=== PATIENT | female | born 1990 | race Two or more races ===

== ENCOUNTER 2016-12-22 15:15 | Inpatient (IN) | payer MEDICAID ==
[~2016-12-22] VITALS: Ht 153 cm; Wt 61.2 kg
[2016-12-22 16:29] LABS: APPEARANCE,URINE CLEAR; PH,URINE 6.5 (4.5-8.0); PROTEIN,URINE 1+ (NEGATIVE)
[2016-12-22 16:30] LABS: KETONES,URINE 1+ (NEGATIVE); LEUKOCYTE ESTERASE ,URINE 1+ (NEGATIVE); NITRITE,URINE NEGATIVE (NEGATIVE); UROBILINOGEN,URINE 1 MG/DL (0.0-1.0)
[2016-12-22 16:36] LABS: BACTERIA,URINE MODERATE /HPF; SQUAMOUS EPITHELIAL CELL,UR MODERATE /LPF (NONE/OCC)
--- NOTE | 2016-12-22 17:01 | Emergency Room Report ---
History of Present Illness General Chief Complaint: General Complaint Source: Patient Present Illness HPI 26 YO female presents to the ED c/o RUQ and Right flank pain x 1 day. pt. reports intermittent pain and nausea x 4 days that she was able to manage symptomatically at home. pt. reports hx of kidney stones, and states pain is now constant, localized in the right flank and RUQ and rated as 9/10 in severity. Denies hematuria, reports mild dysuria, denies Fevers or chills. Pt. denies , denies ill contacts. Denies CP, Palpitations, LOC, AMS, dizziness, Changes in Vision, Sensation, paresthesias, or a sudden severe headache. Allergies: Coded Allergies: No Known Allergies (Unverified , 12/22/16) Patient History Past Medical History: see triage record Past Surgical History: none Pertinent Family History: none Last Menstrual Period: 11/23/16 Now: No : 3 Para: 3 Immunizations: UTD Reviewed Nursing Documentation: PMH: Agreed, PSxH: Agreed Nursing Documentation-PMH Past Medical History: No History, Except For Review of Systems All Other Systems: negative except mentioned in HPI Physical Exam Vital Signs Date Time Temp Pulse Resp B/P Pulse Ox O2 Delivery O2 Flow Rate FiO2 12/22/16 15:37 97.9 77 14 108/67 100 Room Air Sp02 EP Interpretation: reviewed, normal General Appearance: no apparent distress, alert, GCS 15, non-toxic Head: normocephalic, atraumatic Eyes: bilateral eye PERRL, bilateral eye normal inspection ENT: hearing grossly normal, normal pharynx, no angioedema, normal voice Neck: full range of motion, supple/symm/no masses Respiratory: chest non-tender, lungs clear, normal breath sounds, speaking full sentences Cardiovascular #1: regular rate, rhythm, no edema Cardiovascular #2: 2+ carotid (R), 2+ carotid (L), 2+ radial (R), 2+ radial (L) , 2+ dorsalis pedis (R), 2+ dorsalis pedis (L) Gastrointestinal: normal bowel sounds, soft, no guarding, no rebound, other - Positive Montgomery sign and right CVA Tenderness, Negative MacBurney's sign, Negative Rosvigns Sign, Negative Psoas, No Peritoneal signs. RUQ TTP to deep palpation Rectal: deferred Genitourinary: normal inspection, CVA tenderness (R) Musculoskeletal: back normal, gait/station normal, normal range of motion, non- tender, no calf tenderness Neurologic: alert, oriented x3, responsive, motor strength/tone normal, sensory intact, speech normal Psychiatric: judgement/insight normal, memory normal, mood/affect normal, no suicidal/homicidal ideation Reflexes: 4+ bicep (R), 4+ bicep (L), 4+ tricep (R), 4+ tricep (L), 4+ knee (R) , 4+ knee (L) Skin: normal color, no rash, warm/dry, well hydrated Lymphatic: no adenopathy Medical Decision Making PA Attestation Dr. Santamaria is my supervising Physician whom patient management has been discussed with. Diagnostic Impression: Primary Impression: Choledocholithiasis with acute cholecystitis with obstruction Additional Impression: UTI (urinary tract infection) Qualified Codes: N30.01 - Acute cystitis with hematuria ER Course Pt. presents to the ED c/o RUQ and Right flank pain x 1 day. pt. reports intermittent pain and nausea x 4 days that she was able to manage symptomatically at home. pt. reports hx of kidney stones, and states pain is now constant, localized in the right flank and RUQ and rated as 9/10 in severity. Ddx considered but are not limited to Diverticulitis, acute appy, diarrhea,UC, PUD, GE, pancreatitis, gallstone, kidney stone Vital signs: are WNL, pt. is afebrile H&PE are most consistent with Hypovolemia and diarrhea ORDERS: CBC: no Leukocytosis CMP: WNL lipase: WNL UA: WBC"S and Bacteria indicating UTI - CT abdomen and pelvis no contrast: show no kidney stones or hydro, multiple gall bladder stones and one stone in the neck of the GBD, US imaging recommended by preliminary radiology report. - US Abdomen complete: multiple stones in the gall bladder, a 1.5mm stone in the neck of the gall bladder/CBD, no dilation of the CBD, positive murphys on US per preliminary US report. -- SURGICAL CONSULT: Dr. Manjeet GONZALEZ SCAN- ordered per request by Dr. Burroughs surgical consult. ED INTERVENTIONS: -- 5mg [place] PO for pain - 4mg Zofran PO -- Pt. declined. - Pt is Placed NPO - 1 gram Rocephin IVP DISPOSITION: at this time pt. will be admitted to Dr. Hollingsworth for Choledocholithiasis with acute cholecystitis and obstruction. Dr. Hollingsworth agreed to admit the pt. and to continue pt. care management. Labs Test 12/22/16 15:43 12/22/16 16:35 Urine Color Yellow Urine Appearance Clear Urine pH 6.5 (4.5-8.0) Urine Specific [place] 1.015 (1.005-1.035) Urine Protein 1+ (NEGATIVE) Urine Glucose (UA) Negative (NEGATIVE) Urine Ketones 1+ (NEGATIVE) Urine Occult Blood 1+ (NEGATIVE) Urine Nitrite Negative (NEGATIVE) Urine Bilirubin Negative (NEGATIVE) Urine Urobilinogen 1 MG/DL (0.0-1.0) Urine Leukocyte Esterase 1+ (NEGATIVE) Urine RBC 2-4 /HPF (0 - 2) Urine WBC 2-4 /HPF (0 - 2) Urine Squamous Epithelial Cells Moderate /LPF (NONE/OCC) Urine Bacteria Moderate /HPF (NONE) Urine HCG, Qualitative Negative White Blood Count 6.9 K/UL (4.8-10.8) Red Blood Count 4.49 M/UL (4.20-5.40) Hemoglobin 13.4 G/DL (12.0-16.0) Hematocrit 39.9 % (37.0-47.0) Mean Corpuscular Volume 89 FL (80-99) Mean Corpuscular Hemoglobin 29.7 PG (27.0-31.0) Mean Corpuscular Hemoglobin Concent 33.5 G/DL (32.0-36.0) Red Cell Distribution Width 12.7 % (11.6-14.8) Platelet Count 222 K/UL (150-450) Mean Platelet Volume 9.5 FL (6.5-10.1) Neutrophils (%) (Auto) 67.3 % (45.0-75.0) Lymphocytes (%) (Auto) 23.7 % (20.0-45.0) Monocytes (%) (Auto) 6.3 % (1.0-10.0) Eosinophils (%) (Auto) 1.9 % (0.0-3.0) Basophils (%) (Auto) 0.8 % (0.0-2.0) Sodium Level 138 mEQ/L (135-145) Potassium Level 3.9 mEQ/L (3.4-4.9) Chloride Level 98 mEQ/L (98-107) Carbon Dioxide Level 25 mEQ/L (20-30) Anion Gap 15 (5-15) Blood Urea Nitrogen 11 mg/dL (7-23) Creatinine 0.6 mg/dL (0.5-0.9) Estimat Glomerular Filtration Rate > 60 mL/min (>60) Glucose Level 96 mg/dL (74-106) Calcium Level 9.3 mg/dL (8.6-10.2) Total Bilirubin 0.4 mg/dL (0.0-1.2) Aspartate Amino Transf (AST/SGOT) 12 U/L (5-40) Alanine Aminotransferase (ALT/SGPT) 7 U/L (3-33) Alkaline Phosphatase 69 U/L (35-104) Total Protein 7.6 g/dL (6.6-8.7) Albumin 4.5 g/dL (3.5-5.2) Globulin 3.1 g/dL Albumin/Globulin Ratio 1.4 (1.0-2.7) Lipase 25 U/L (< 60) Last Vital Signs Date Time Temp Pulse Resp B/P Pulse Ox O2 Delivery O2 Flow Rate FiO2 12/22/16 15:37 97.9 77 14 108/67 100 Room Air Disposition: ADMITTED INPATIENT Condition: Serious Referrals: [facility] (PCP) Mishel Ramos Dec 22, 2016 17:01
[2016-12-22 17:03] LABS: BASOPHILS % (AUTO) 0.8 % (0.0-2.0); EOSINOPHILS % (AUTO) 1.9 % (0.0-3.0); LYMPHOCYTES % (AUTO) 23.7 % (20.0-45.0); MEAN CORPUSCULAR HEMOGLOBIN 29.7 PG (27.0-31.0); MEAN CORPUSCULAR HGB CONC 33.5 G/DL (32.0-36.0); MEAN CORPUSCULAR VOLUME 89 FL (80-99); MEAN PLATELET VOLUME 9.5 FL (6.5-10.1); MONOCYTES % (AUTO) 6.3 % (1.0-10.0); NEUTROPHILS % (AUTO) 67.3 % (45.0-75.0); PLATELET COUNT 222 K/UL (150-450); RED BLOOD COUNT 4.49 M/UL (4.20-5.40); RED CELL DISTRIBUTION WIDTH 12.7 % (11.6-14.8); WHITE BLOOD COUNT 6.9 K/UL (4.8-10.8)
[2016-12-22 17:23] LABS: ALANINE AMINOTRANSFERASE 7 U/L (3-33); ALBUMIN/GLOBULIN RATIO 1.4 (1.0-2.7); ANION GAP 15 (5-15); ASPARTATE AMINO TRANSFERASE 12 U/L (5-40); CALCIUM 9.3 mg/dL (8.6-10.2); CARBON DIOXIDE 25 mEQ/L (20-30); CHLORIDE 98 mEQ/L (98-107); CREATININE 0.6 mg/dL (0.5-0.9); GLOMERULAR FILTRATION RATE > 60 mL/min (>60); HEMOLYSIS 8; LIPASE 25 U/L (< 60); POTASSIUM 3.9 mEQ/L (3.4-4.9); SODIUM 138 mEQ/L (135-145); TOTAL PROTEIN 7.6 g/dL (6.6-8.7)
[2016-12-22] MEDS ORDERED: Norco 5mg/325mg tab ORAL ONE (18:15)
[2016-12-22] MEDS ORDERED: cefOXitin Sod 1 GM in D5W 55 ML IVPB STA (20:17)
[2016-12-22] MEDS ORDERED: NKM (20:39)
[2016-12-22] MEDS ORDERED: cefOXitin 1gm Inj ONE (20:46)
[2016-12-22 21:49] VITALS: BP 112/72
--- NOTE | 2016-12-22 22:11 | Infectious Diseases Prog Note ---
Assessment/Plan Problems: (1) Choledocholithiasis with acute cholecystitis with obstruction Assessment & Plan: will start unasyn empirically, and send blood culture, HIDA scan is pending , needs cholecystectomy for source control , general surgery is following (2) UTI (urinary tract infection) Assessment & Plan: will send urine culture, and start unasyn empirically (3) Abdominal pain Assessment & Plan: due to the above, continue pain management as per primary Subjective Allergies: Coded Allergies: No Known Allergies (Unverified , 12/22/16) Objective Vital Signs Last 24 Hour Vital Signs Date Time Temp Pulse Resp B/P Pulse Ox O2 Delivery O2 Flow Rate FiO2 12/22/16 21:50 98.1 86 16 112/72 100 Room Air 12/22/16 21:49 98.1 86 16 112/72 100 Room Air 12/22/16 19:12 98.1 12/22/16 15:37 97.9 77 14 108/67 100 Room Air Height (Feet): 5 Height (Inches): 3.00 Weight (Pounds): 135 Laboratory Tests Test 12/22/16 15:43 12/22/16 16:35 Urine Color Yellow Urine Appearance Clear Urine pH 6.5 (4.5-8.0) Urine Specific [place] 1.015 (1.005-1.035) Urine Protein 1+ (NEGATIVE) H Urine Glucose (UA) Negative (NEGATIVE) Urine Ketones 1+ (NEGATIVE) H Urine Occult Blood 1+ (NEGATIVE) H Urine Nitrite Negative (NEGATIVE) Urine Bilirubin Negative (NEGATIVE) Urine Urobilinogen 1 MG/DL (0.0-1.0) H Urine Leukocyte Esterase 1+ (NEGATIVE) H Urine RBC 2-4 /HPF (0 - 2) H Urine WBC 2-4 /HPF (0 - 2) Urine Squamous Epithelial Cells Moderate /LPF (NONE/OCC) H Urine Bacteria Moderate /HPF (NONE) H Urine HCG, Qualitative Negative White Blood Count 6.9 K/UL (4.8-10.8) Red Blood Count 4.49 M/UL (4.20-5.40) Hemoglobin 13.4 G/DL (12.0-16.0) Hematocrit 39.9 % (37.0-47.0) Mean Corpuscular Volume 89 FL (80-99) Mean Corpuscular Hemoglobin 29.7 PG (27.0-31.0) Mean Corpuscular Hemoglobin Concent 33.5 G/DL (32.0-36.0) Red Cell Distribution Width 12.7 % (11.6-14.8) Platelet Count 222 K/UL (150-450) Mean Platelet Volume 9.5 FL (6.5-10.1) Neutrophils (%) (Auto) 67.3 % (45.0-75.0) Lymphocytes (%) (Auto) 23.7 % (20.0-45.0) Monocytes (%) (Auto) 6.3 % (1.0-10.0) Eosinophils (%) (Auto) 1.9 % (0.0-3.0) Basophils (%) (Auto) 0.8 % (0.0-2.0) Sodium Level 138 mEQ/L (135-145) Potassium Level 3.9 mEQ/L (3.4-4.9) Chloride Level 98 mEQ/L (98-107) Carbon Dioxide Level 25 mEQ/L (20-30) Anion Gap 15 (5-15) Blood Urea Nitrogen 11 mg/dL (7-23) Creatinine 0.6 mg/dL (0.5-0.9) Estimat Glomerular Filtration Rate > 60 mL/min (>60) Glucose Level 96 mg/dL (74-106) Calcium Level 9.3 mg/dL (8.6-10.2) Total Bilirubin 0.4 mg/dL (0.0-1.2) Aspartate Amino Transf (AST/SGOT) 12 U/L (5-40) Alanine Aminotransferase (ALT/SGPT) 7 U/L (3-33) Alkaline Phosphatase 69 U/L (35-104) Total Protein 7.6 g/dL (6.6-8.7) Albumin 4.5 g/dL (3.5-5.2) Globulin 3.1 g/dL Albumin/Globulin Ratio 1.4 (1.0-2.7) Lipase 25 U/L (< 60) Bobby Story M.D. Dec 22, 2016 22:11
[2016-12-22] MEDS ORDERED: Norco 5mg/325mg tab ORAL PRN (22:30)
[2016-12-23] MEDS ORDERED: Unasyn 3gm Inj ONE ×2 (00:13→06:03)
[2016-12-23] MEDS: Ampicillin/Sulbactam Sod 3 GM in NS 110 ML IVPB SCH ×2 (01:10→06:14)
[2016-12-23] MEDS: Morphine Sulfate 2mg/ml Inj IVP PRN ×2 (01:39→05:47)
[2016-12-23 04:00] VITALS: BP 115/85
[2016-12-23] MEDS: Norco 5mg/325mg tab ORAL PRN ×2 (04:02→08:08)
[2016-12-23 06:46] LABS: BASOPHILS % (AUTO) 0.9 % (0.0-2.0); EOSINOPHILS % (AUTO) 2.1 % (0.0-3.0); LYMPHOCYTES % (AUTO) 26.2 % (20.0-45.0); MEAN CORPUSCULAR HEMOGLOBIN 29.5 PG (27.0-31.0); MEAN CORPUSCULAR HGB CONC 33.3 G/DL (32.0-36.0); MEAN CORPUSCULAR VOLUME 89 FL (80-99); MEAN PLATELET VOLUME 10.3 FL (6.5-10.1); MONOCYTES % (AUTO) 7.4 % (1.0-10.0); NEUTROPHILS % (AUTO) 63.5 % (45.0-75.0); PLATELET COUNT 245 K/UL (150-450); RED BLOOD COUNT 4.51 M/UL (4.20-5.40); RED CELL DISTRIBUTION WIDTH 13.1 % (11.6-14.8); WHITE BLOOD COUNT 7.3 K/UL (4.8-10.8)
[2016-12-23 07:03] LABS: ALANINE AMINOTRANSFERASE 7 U/L (3-33); ALBUMIN/GLOBULIN RATIO 1.5 (1.0-2.7); ANION GAP 11 (5-15); ASPARTATE AMINO TRANSFERASE 11 U/L (5-40); CALCIUM 9.3 mg/dL (8.6-10.2); CARBON DIOXIDE 26 mEQ/L (20-30); CHLORIDE 103 mEQ/L (98-107); CREATININE 0.6 mg/dL (0.5-0.9); GLOMERULAR FILTRATION RATE > 60 mL/min (>60); HEMOLYSIS 2; POTASSIUM 4.2 mEQ/L (3.4-4.9); SODIUM 140 mEQ/L (135-145); TOTAL PROTEIN 7.1 g/dL (6.6-8.7)
[2016-12-23 08:00] VITALS: BP 102/57
--- NOTE | 2016-12-23 08:16 | Consultation ---
History of Present Illness General Date patient seen: Dec 23, 2016 Chief Complaint: General Complaint Present Illness Allergies: Coded Allergies: No Known Allergies (Unverified , 12/22/16) Medication History Scheduled No Known Medications* (NKM - No Known Medications*), 0 ., (Reported) Patient History Healthcare decision maker Resuscitation status Full Code Advanced Directive on File Physical Exam Last 24 Hour Vital Signs Date Time Temp Pulse Resp B/P Pulse Ox O2 Delivery O2 Flow Rate FiO2 12/23/16 06:17 98.1 12/23/16 05:01 98.1 12/23/16 04:00 97.8 80 18 115/85 100 Room Air 12/23/16 01:10 98.1 12/22/16 21:50 98.1 86 16 112/72 100 Room Air 12/22/16 21:49 98.1 86 16 112/72 100 Room Air 12/22/16 19:12 98.1 12/22/16 15:37 97.9 77 14 108/67 100 Room Air Intake and Output 12/22/16 12/23/16 19:00 07:00 Intake Total 0 ml 390 ml Balance 0 ml 390 ml Intake Oral 0 ml IV Total 390 ml # Voids 1 Laboratory Tests Test 12/22/16 15:43 12/22/16 16:35 12/23/16 05:10 Urine Color Yellow Urine Appearance Clear Urine pH 6.5 (4.5-8.0) Urine Specific [place] 1.015 (1.005-1.035) Urine Protein 1+ (NEGATIVE) H Urine Glucose (UA) Negative (NEGATIVE) Urine Ketones 1+ (NEGATIVE) H Urine Occult Blood 1+ (NEGATIVE) H Urine Nitrite Negative (NEGATIVE) Urine Bilirubin Negative (NEGATIVE) Urine Urobilinogen 1 MG/DL (0.0-1.0) H Urine Leukocyte Esterase 1+ (NEGATIVE) H Urine RBC 2-4 /HPF (0 - 2) H Urine WBC 2-4 /HPF (0 - 2) Urine Squamous Epithelial Cells Moderate /LPF (NONE/OCC) H Urine Bacteria Moderate /HPF (NONE) H Urine HCG, Qualitative Negative White Blood Count 6.9 K/UL (4.8-10.8) 7.3 K/UL (4.8-10.8) Red Blood Count 4.49 M/UL (4.20-5.40) 4.51 M/UL (4.20-5.40) Hemoglobin 13.4 G/DL (12.0-16.0) 13.3 G/DL (12.0-16.0) Hematocrit 39.9 % (37.0-47.0) 40.0 % (37.0-47.0) Mean Corpuscular Volume 89 FL (80-99) 89 FL (80-99) Mean Corpuscular Hemoglobin 29.7 PG (27.0-31.0) 29.5 PG (27.0-31.0) Mean Corpuscular Hemoglobin Concent 33.5 G/DL (32.0-36.0) 33.3 G/DL (32.0-36.0) Red Cell Distribution Width 12.7 % (11.6-14.8) 13.1 % (11.6-14.8) Platelet Count 222 K/UL (150-450) 245 K/UL (150-450) Mean Platelet Volume 9.5 FL (6.5-10.1) 10.3 FL (6.5-10.1) H Neutrophils (%) (Auto) 67.3 % (45.0-75.0) 63.5 % (45.0-75.0) Lymphocytes (%) (Auto) 23.7 % (20.0-45.0) 26.2 % (20.0-45.0) Monocytes (%) (Auto) 6.3 % (1.0-10.0) 7.4 % (1.0-10.0) Eosinophils (%) (Auto) 1.9 % (0.0-3.0) 2.1 % (0.0-3.0) Basophils (%) (Auto) 0.8 % (0.0-2.0) 0.9 % (0.0-2.0) Sodium Level 138 mEQ/L (135-145) 140 mEQ/L (135-145) Potassium Level 3.9 mEQ/L (3.4-4.9) 4.2 mEQ/L (3.4-4.9) Chloride Level 98 mEQ/L (98-107) 103 mEQ/L (98-107) Carbon Dioxide Level 25 mEQ/L (20-30) 26 mEQ/L (20-30) Anion Gap 15 (5-15) 11 (5-15) Blood Urea Nitrogen 11 mg/dL (7-23) 12 mg/dL (7-23) Creatinine 0.6 mg/dL (0.5-0.9) 0.6 mg/dL (0.5-0.9) Estimat Glomerular Filtration Rate > 60 mL/min (>60) > 60 mL/min (>60) Glucose Level 96 mg/dL (74-106) 95 mg/dL (74-106) Calcium Level 9.3 mg/dL (8.6-10.2) 9.3 mg/dL (8.6-10.2) Total Bilirubin 0.4 mg/dL (0.0-1.2) 0.4 mg/dL (0.0-1.2) Aspartate Amino Transf (AST/SGOT) 12 U/L (5-40) 11 U/L (5-40) Alanine Aminotransferase (ALT/SGPT) 7 U/L (3-33) 7 U/L (3-33) Alkaline Phosphatase 69 U/L (35-104) 68 U/L (35-104) Total Protein 7.6 g/dL (6.6-8.7) 7.1 g/dL (6.6-8.7) Albumin 4.5 g/dL (3.5-5.2) 4.3 g/dL (3.5-5.2) Globulin 3.1 g/dL 2.8 g/dL Albumin/Globulin Ratio 1.4 (1.0-2.7) 1.5 (1.0-2.7) Lipase 25 U/L (< 60) Height (Feet): 5 Height (Inches): 3.00 Weight (Pounds): 135 Medications Current Medications Medications (Trade) Dose Ordered Sig/Steven Route PRN Reason Start Time Stop Time Status Last Admin Dose Admin Acetaminophen 650 mg 650 mg Q4H PRN ORAL Mild Pain/Temp > 100.5 12/22/16 22:30 01/21/17 22:29 Acetaminophen/ Hydrocodone Bitart (Icard 5/325) 1 tab Q4H PRN ORAL Moderate Breakthru Pain (5-7) 12/23/16 01:34 12/29/16 22:29 12/23/16 08:08 Ampicillin Sodium/ Sulbactam Sodium/ Sodium Chloride (Unasyn/Sodium Chloride) 110 ml @ 220 mls/hr Q6HR IVPB 12/23/16 00:00 12/30/16 00:00 12/23/16 06:14 Influenza Virus Vaccine (Flu Vaccine) 0.5 ml ONCE ONCE IM 12/23/16 09:00 12/23/16 09:01 12/23/16 08:10 Morphine Sulfate (Morphine Sulfate) 2 mg Q4H PRN IVP Severe Pain (Pain Scale 7-10) 12/23/16 01:30 12/30/16 01:29 12/23/16 05:47 Sodium Chloride (0.45% NS 1000ml) 1,000 ml @ 75 mls/hr [id number] IV 12/22/16 22:30 01/21/17 22:29 12/23/16 01:10 Assessment/Plan Problem List: (1) Choledocholithiasis with acute cholecystitis with obstruction ICD Codes: K80.41 - Calculus of bile duct with cholecystitis, unspecified, with obstruction SNOMED: 22842398 (2) Abdominal pain Assessment & Plan: intractable ICD Codes: R10.9 - Unspecified abdominal pain SNOMED: 43131499 Assessment/Plan seen dictated YAJAIRA DUARTE Dec 23, 2016 08:16
[2016-12-23] MEDS ORDERED: Norco 5mg/325mg tab ORAL PRN (08:23)
[2016-12-23] MEDS ORDERED: Influenza Virus Vaccine 0.5ml IM ONE (09:00)
--- NOTE | 2016-12-23 09:22 | Diagnostic Imaging Report ---
Indication: Abdominal pain Technique: Continuous helical transaxial imaging of the abdomen and pelvis was obtained from the lung bases to the pubic symphysis. No intravenous contrast was administered. Coronal 2-D reformats were also obtained. Total Dose length Product (DLP): [address] Dose Index Volume (CTDIvol): 15.2 mGy Comparison: none Findings: The lung bases are clear. There are gallstones within a dilated gallbladder. There is no nephrolithiasis, free air identified. There is a trace amount of free fluid in the pelvis. This is probably physiologic. Surgical clips noted in the area of the appendix which is not seen. Impression: Suspected acute cholecystitis with distention of the gallbladder are multiple stones. Please correlate clinically. Status post appendectomy The CT scanner at [facility] is accredited by the [employer] and the scans are performed using protocols designed to limit radiation exposure to as low as reasonably achievable to attain images of sufficient resolution adequate for diagnostic evaluation.
--- NOTE | 2016-12-23 09:28 | General Progress Note ---
Progress Note Progress Note Chart reviewed, pt examined, consult dictated. Impression: cholelithiasis, probable biliary colic. Plan: will check HIDA scan today. If the gallbladder is occluded we will schedule her for a cholecystectomy. Jaspal Burroughs MD Dec 23, 2016 09:28
[2016-12-23] MEDS ORDERED: Morphine Sulfate 2mg/ml Inj IVP PRN (09:30)
--- NOTE | 2016-12-23 09:50 | Diagnostic Imaging Report ---
Indication:Abdominal pain Technique: Grayscale and duplex Doppler imaging of the abdomen performed. Comparison: None Findings: There are multiple gallstones present. The gallbladder is distended and sonographic Espinoza's sign is positive per technologist. Findings are suspicious for acute cholecystitis. The liver, demonstrated part of the pancreas, aorta and IVC, both kidneys, spleen appear unremarkable. There is no biliary ductal dilatation identified. Doppler evaluation of the main portal vein shows patency. There is no ascites. No hydronephrosis seen. Impression: Acute cholecystitis suspected
[2016-12-23] MEDS: Morphine Sulfate 4mg/ml Inj IVP PRN ×2 (09:52→14:08)
--- NOTE | 2016-12-23 11:31 | Diagnostic Imaging Report ---
Indication: Abdominal Pain Technique: 5.9 mCi of technetium 99 m-Choletec was injected intravenously. Planar imaging of the abdomen was then performed every 5 minutes up to 30 minutes and every 10 minutes up to one hour. Oblique views were also obtained. 4 mg of morphine sulfate was given at 15 minutes. Findings: There is prompt uptake within the liver with good washout of radiotracer from the liver on subsequent imaging. There is excretion into the biliary ducts. Gallbladder activity is not visualized indicating obstruction of the cystic duct and acute cholecystitis. Bowel activity is demonstrated in a timely fashion indicating patency of the common bile duct. Impression: Positive HIDA scan. Cystic duct obstruction.
[2016-12-23] MEDS: Ampicillin/Sulbactam Sod 3 GM in NS 55 ML IVPB SCH ×2 (11:38→17:33)
[2016-12-23 11:56] VITALS: BP 102/58
--- NOTE | 2016-12-23 13:58 | Consultation ---
DATE OF CONSULTATION: 12/23/2016 SURGICAL CONSULTATION: CONSULTING PHYSICIAN: Jaspal Burroughs M.D. ATTENDING PHYSICIAN: Asia Pack M.D. REASON FOR CONSULTATION: Abdominal pain, cholelithiasis. HISTORY OF PRESENT ILLNESS: This is a 26-year-old, 3, para 3, female, last menstrual period 11/23/2016, who was told she had gallstones 8 months ago. The patient was 1 week post when she developed abdominal pain. Studies at that time revealed cholelithiasis. The patient was discharged at that time with a prescription for Grindstone. She reports problems with intermittent upper abdominal pain. She has usually been able to control her symptoms with the Grindstone alternating with ibuprofen. PAST MEDICAL HISTORY: Previous surgeries of x3. ALLERGIES: None known. MEDICATIONS: None. FAMILY HISTORY: Positive for breast cancer in some paternal great aunt. There is diabetes on the mother's side. SOCIAL HISTORY: Tobacco, none. Alcohol, occasional consumption. REVIEW OF SYSTEMS: Essentially negative. She states she had urinary tract infection shortly before completion of her last and was told she might have a renal mass. She did not follow up with urologist. PHYSICAL EXAMINATION: GENERAL: Reveals a well-developed and well-nourished female, in no acute distress. VITAL SIGNS: Temperature 97.7, blood pressure 102/57, pulse 69, and respirations 16. HEENT: Normocephalic. Pupils are equal and reactive to light. There was no scleral icterus. NECK: Supple without adenopathy. LUNGS: Clear. HEART: Showed regular rhythm without murmurs. ABDOMEN: Abdomen was flat. There is some tenderness and discomfort in the right upper quadrant. There was no true Espinoza sign. There is a healed Pfannenstiel scar. EXTREMITIES: Showed no clubbing, cyanosis, or edema. Peripheral pulses are intact. LABORATORY STUDIES: CBC today shows white blood count of 7300, hemoglobin 13.3 g%, hematocrit 40%, and platelet count 245,000. Clinical chemistry showed sodium of 140, potassium 4.2, chloride 103, bicarbonate 26, BUN 12, creatinine 0.6, glucose 95, total bilirubin 0.4, SGOT 7, SGPT 11, alkaline phosphatase 68. Lipase was normal yesterday at 25. CT scan of the abdomen was reviewed with the radiologist. The patient has multiple gall stones. There was no obvious gallbladder wall thickening or pericholecystic fluid. An ultrasound confirmed the presence of multiple stones and a dilated gallbladder. There was no ductal dilatation. IMPRESSION: Cholelithiasis, probable biliary colic. PLAN: We will obtain HIDA scan this morning. If the HIDA scan does not visualize the gallbladder, we will need to arrange for laparoscopic cholecystectomy. If the cystic duct is patent, we will start her on clear liquid diet in hopes of discharging for an elective cholecystectomy in the future. Jaspal Burroughs M.D. DR: Galileo JOB#: [id number] CC:
--- NOTE | 2016-12-23 15:29 | Infectious Diseases Prog Note ---
Assessment/Plan Problems: (1) Choledocholithiasis with acute cholecystitis with obstruction Assessment & Plan: continue Unasyn empirically, await blood culture, HIDA scan is pending , needs cholecystectomy for source control , general surgery is following (2) UTI (urinary tract infection) Assessment & Plan: await urine culture, continue Unasyn empirically (3) Abdominal pain Assessment & Plan: due to the above, continue pain management as per primary Subjective Constitutional: Reports: anorexia Gastrointestinal/Abdominal: Reports: nausea Allergies: Coded Allergies: No Known Allergies (Unverified , 12/22/16) All Systems: reviewed and negative except above Objective Vital Signs Last 24 Hour Vital Signs Date Time Temp Pulse Resp B/P Pulse Ox O2 Delivery O2 Flow Rate FiO2 12/23/16 14:38 97.9 12/23/16 11:56 97.9 61 20 102/58 99 Room Air 12/23/16 08:00 97.7 69 16 102/57 99 Room Air 12/23/16 06:17 98.1 12/23/16 05:01 98.1 12/23/16 04:00 97.8 80 18 115/85 100 Room Air 12/23/16 01:10 98.1 12/22/16 21:50 98.1 86 16 112/72 100 Room Air 12/22/16 21:49 98.1 86 16 112/72 100 Room Air 12/22/16 19:12 98.1 12/22/16 15:37 97.9 77 14 108/67 100 Room Air Height (Feet): 5 Height (Inches): 3.00 Weight (Pounds): 135 General Appearance: WD/WN, no acute distress HEENT: normocephalic, atraumatic, anicteric, mucous membranes moist Respiratory/Chest: chest wall non-tender, lungs clear, normal breath sounds, no respiratory distress Cardiovascular: normal peripheral pulses, normal rate, regular rhythm, no gallop/murmur, no JVD Abdomen: normal bowel sounds, soft, non tender, no organomegaly, non distended , no mass Extremities: no cyanosis, no clubbing Skin: no rash, no lesions Microbiology Date/Time Source Procedure Growth Status 12/22/16 15:43 Urine,Clean Catch Urine Culture - Preliminary NO GROWTH Resulted Laboratory Tests Test 12/22/16 15:43 12/22/16 16:35 12/23/16 05:10 Urine Color Yellow Urine Appearance Clear Urine pH 6.5 (4.5-8.0) Urine Specific Evans 1.015 (1.005-1.035) Urine Protein 1+ (NEGATIVE) H Urine Glucose (UA) Negative (NEGATIVE) Urine Ketones 1+ (NEGATIVE) H Urine Occult Blood 1+ (NEGATIVE) H Urine Nitrite Negative (NEGATIVE) Urine Bilirubin Negative (NEGATIVE) Urine Urobilinogen 1 MG/DL (0.0-1.0) H Urine Leukocyte Esterase 1+ (NEGATIVE) H Urine RBC 2-4 /HPF (0 - 2) H Urine WBC 2-4 /HPF (0 - 2) Urine Squamous Epithelial Cells Moderate /LPF (NONE/OCC) H Urine Bacteria Moderate /HPF (NONE) H Urine HCG, Qualitative Negative White Blood Count 6.9 K/UL (4.8-10.8) 7.3 K/UL (4.8-10.8) Red Blood Count 4.49 M/UL (4.20-5.40) 4.51 M/UL (4.20-5.40) Hemoglobin 13.4 G/DL (12.0-16.0) 13.3 G/DL (12.0-16.0) Hematocrit 39.9 % (37.0-47.0) 40.0 % (37.0-47.0) Mean Corpuscular Volume 89 FL (80-99) 89 FL (80-99) Mean Corpuscular Hemoglobin 29.7 PG (27.0-31.0) 29.5 PG (27.0-31.0) Mean Corpuscular Hemoglobin Concent 33.5 G/DL (32.0-36.0) 33.3 G/DL (32.0-36.0) Red Cell Distribution Width 12.7 % (11.6-14.8) 13.1 % (11.6-14.8) Platelet Count 222 K/UL (150-450) 245 K/UL (150-450) Mean Platelet Volume 9.5 FL (6.5-10.1) 10.3 FL (6.5-10.1) H Neutrophils (%) (Auto) 67.3 % (45.0-75.0) 63.5 % (45.0-75.0) Lymphocytes (%) (Auto) 23.7 % (20.0-45.0) 26.2 % (20.0-45.0) Monocytes (%) (Auto) 6.3 % (1.0-10.0) 7.4 % (1.0-10.0) Eosinophils (%) (Auto) 1.9 % (0.0-3.0) 2.1 % (0.0-3.0) Basophils (%) (Auto) 0.8 % (0.0-2.0) 0.9 % (0.0-2.0) Sodium Level 138 mEQ/L (135-145) 140 mEQ/L (135-145) Potassium Level 3.9 mEQ/L (3.4-4.9) 4.2 mEQ/L (3.4-4.9) Chloride Level 98 mEQ/L (98-107) 103 mEQ/L (98-107) Carbon Dioxide Level 25 mEQ/L (20-30) 26 mEQ/L (20-30) Anion Gap 15 (5-15) 11 (5-15) Blood Urea Nitrogen 11 mg/dL (7-23) 12 mg/dL (7-23) Creatinine 0.6 mg/dL (0.5-0.9) 0.6 mg/dL (0.5-0.9) Estimat Glomerular Filtration Rate > 60 mL/min (>60) > 60 mL/min (>60) Glucose Level 96 mg/dL (74-106) 95 mg/dL (74-106) Calcium Level 9.3 mg/dL (8.6-10.2) 9.3 mg/dL (8.6-10.2) Total Bilirubin 0.4 mg/dL (0.0-1.2) 0.4 mg/dL (0.0-1.2) Aspartate Amino Transf (AST/SGOT) 12 U/L (5-40) 11 U/L (5-40) Alanine Aminotransferase (ALT/SGPT) 7 U/L (3-33) 7 U/L (3-33) Alkaline Phosphatase 69 U/L (35-104) 68 U/L (35-104) Total Protein 7.6 g/dL (6.6-8.7) 7.1 g/dL (6.6-8.7) Albumin 4.5 g/dL (3.5-5.2) 4.3 g/dL (3.5-5.2) Globulin 3.1 g/dL 2.8 g/dL Albumin/Globulin Ratio 1.4 (1.0-2.7) 1.5 (1.0-2.7) Lipase 25 U/L (< 60) Current Medications Medications (Trade) Dose Ordered Sig/Steven Route PRN Reason Start Time Stop Time Status Last Admin Dose Admin Acetaminophen 650 mg 650 mg Q4H PRN ORAL Mild Pain/Temp > 100.5 12/22/16 22:30 01/21/17 22:29 Acetaminophen/ Hydrocodone Bitart 1 tab 1 tab Q4H PRN ORAL moderate to severe pain 12/23/16 08:23 12/29/16 22:29 Ampicillin Sodium/ Sulbactam Sodium/ Sodium Chloride (Unasyn/Sodium Chloride) 55 ml @ 110 mls/hr Q6HR IVPB 12/23/16 12:00 12/30/16 11:59 12/23/16 11:38 Morphine Sulfate (Morphine Sulfate) 2 mg Q4H PRN IVP moderate pain 12/23/16 09:30 12/30/16 09:29 Morphine Sulfate (Morphine Sulfate) 4 mg Q4H PRN IVP severe pain 12/23/16 08:30 12/30/16 08:29 12/23/16 14:08 Sodium Chloride (0.45% NS 1000ml) 1,000 ml @ 75 mls/hr [id number] IV 12/22/16 22:30 01/21/17 22:29 12/23/16 11:38 Bobby Story M.D. Dec 23, 2016 15:29
[2016-12-23 16:00] VITALS: BP 100/58
[2016-12-23 16:44] LABS: INR 1.1 (0.9-1.1); PROTHROMBIN TIME 10.8 SEC (9.30-11.50)
[2016-12-23] MEDS ORDERED: 1/2 NS 1000ml IV ONE (17:17)
[2016-12-23] MEDS ORDERED: Tubing IV Secondary IV ONE (17:17)
[2016-12-23 19:00] VITALS: BP 96/49
--- NOTE | 2016-12-23 20:00 | Cardiology Progress Note ---
Assessment/Plan Assessment/Plan The patient is seen and examined, full consult note will be dictated. Objective Last 24 Hour Vital Signs Date Time Temp Pulse Resp B/P Pulse Ox O2 Delivery O2 Flow Rate FiO2 12/23/16 16:00 96.8 70 20 100/58 98 Room Air 12/23/16 14:38 97.9 12/23/16 11:56 97.9 61 20 102/58 99 Room Air 12/23/16 08:00 97.7 69 16 102/57 99 Room Air 12/23/16 06:17 98.1 12/23/16 05:01 98.1 12/23/16 04:00 97.8 80 18 115/85 100 Room Air 12/23/16 01:10 98.1 12/22/16 21:50 98.1 86 16 112/72 100 Room Air 12/22/16 21:49 98.1 86 16 112/72 100 Room Air Intake and Output 12/22/16 12/23/16 19:00 07:00 Intake Total 0 ml 465 ml Balance 0 ml 465 ml Intake Oral 0 ml IV Total 465 ml # Voids 1 Laboratory Tests Test 12/23/16 05:10 12/23/16 16:15 White Blood Count 7.3 K/UL (4.8-10.8) Red Blood Count 4.51 M/UL (4.20-5.40) Hemoglobin 13.3 G/DL (12.0-16.0) Hematocrit 40.0 % (37.0-47.0) Mean Corpuscular Volume 89 FL (80-99) Mean Corpuscular Hemoglobin 29.5 PG (27.0-31.0) Mean Corpuscular Hemoglobin Concent 33.3 G/DL (32.0-36.0) Red Cell Distribution Width 13.1 % (11.6-14.8) Platelet Count 245 K/UL (150-450) Mean Platelet Volume 10.3 FL (6.5-10.1) H Neutrophils (%) (Auto) 63.5 % (45.0-75.0) Lymphocytes (%) (Auto) 26.2 % (20.0-45.0) Monocytes (%) (Auto) 7.4 % (1.0-10.0) Eosinophils (%) (Auto) 2.1 % (0.0-3.0) Basophils (%) (Auto) 0.9 % (0.0-2.0) Sodium Level 140 mEQ/L (135-145) Potassium Level 4.2 mEQ/L (3.4-4.9) Chloride Level 103 mEQ/L (98-107) Carbon Dioxide Level 26 mEQ/L (20-30) Anion Gap 11 (5-15) Blood Urea Nitrogen 12 mg/dL (7-23) Creatinine 0.6 mg/dL (0.5-0.9) Estimat Glomerular Filtration Rate > 60 mL/min (>60) Glucose Level 95 mg/dL (74-106) Calcium Level 9.3 mg/dL (8.6-10.2) Total Bilirubin 0.4 mg/dL (0.0-1.2) Aspartate Amino Transf (AST/SGOT) 11 U/L (5-40) Alanine Aminotransferase (ALT/SGPT) 7 U/L (3-33) Alkaline Phosphatase 68 U/L (35-104) Total Protein 7.1 g/dL (6.6-8.7) Albumin 4.3 g/dL (3.5-5.2) Globulin 2.8 g/dL Albumin/Globulin Ratio 1.5 (1.0-2.7) Prothrombin Time 10.8 SEC (9.30-11.50) Prothromb Time International Ratio 1.1 (0.9-1.1) Activated Partial Thromboplast Time 29 SEC (23-33) Microbiology Date/Time Source Procedure Growth Status 12/22/16 15:43 Urine,Clean Catch Urine Culture - Preliminary NO GROWTH Resulted MALVIN MARR Dec 23, 2016 20:00
--- NOTE | 2016-12-23 21:08 | Consultation ---
DATE OF CONSULTATION: 12/22/2016 INFECTIOUS DISEASE CONSULTATION REFERRING PHYSICIAN: Asia Pack M.D. REASON FOR CONSULTATION: Acute cholecystitis. Recommendation for antibiotics therapy. HISTORY OF PRESENT ILLNESS: The patient is a 26-year-old female who presented to the Emergency Room at [facility] for worsening right upper quadrant abdominal pain, which she had since last April after she delivered her baby. She was told that she had gallstones and she needed surgical procedure, but she refused to have the surgery done at the time, when she delivered her baby and she kept putting it off during the last five days when her pain progressed with 10/10 associated with nausea and poor oral intake. Her pain is on and off since April last year. It gets up to 10 in intensity when it hits hard and sometimes it goes away on its own. The patient takes Foreman for pain control, but it was unable to control her pain for the last five days, so she decided to come into the hospital for evaluation. Her pain normally localized in the right upper quadrant, radiates to the right lower quadrant, sometimes to her back. She had nausea and vomited once. No diarrhea. She had low-grade fever, but no chills. In the ED, the patient had a CT scan of the abdomen and pelvis showed acute cholecystitis with distention of the gallbladder and multiple stones. This was confirmed with a HIDA scan later, which was positive and showed cystic duct obstruction. So, the patient was admitted to the hospital and I was consulted by the primary provider for antibiotics recommendation and treatment. REVIEW OF SYSTEMS: 14-point of system were reviewed and all were negative apart from the ones I mentioned above in my H and P. PAST MEDICAL HISTORY: Significant for gallstone and chronic abdominal pain due to gallstones. PAST SURGICAL HISTORY: Negative. FAMILY HISTORY: Noncontributory. SOCIAL HISTORY: The patient lives with her family. Denied using any drugs, tobacco, or alcohol. ALLERGIES: She has no known drug allergy. MEDICATIONS: She received fluoxetine in the emergency room. For the rest of her medications, please refer to MAR. LABORATORY DATA: White count of 6.9, hemoglobin of 13.4, platelet count of 222,000. BUN of 11 and creatinine 0.6. AST of 12, ALT is 7, and alkaline phosphatase of 69. Urinalysis showed negative nitrate. Positive one leukocyte esterase, WBC 2 to 4 squamous epithelial cells, moderate amount of bacteria. Microbiology, urine culture pending. Imaging CT scan of the abdomen and pelvis showed suspected acute cholecystitis with distention of the gallbladder with multiple stones. Status post appendectomy. Ultrasound of the abdomen showed acute cholecystitis suspected. HIDA scan showed positive result with cystic duct obstruction. PHYSICAL EXAMINATION: VITAL SIGNS: Temperature 97.9, pulse 77, respirations 14, blood pressure 108/67, and pulse oximetry 100 on room air. GENERAL: Middle age female up in bed, awake, alert, and not in distress. She feel hungry. HEENT: Normocephalic and atraumatic. Pupils are both reactive to light equally. Moist oral mucosa. No exudate. NECK: Supple. No lymphadenopathy. CARDIOVASCULAR: Regular rate and rhythm. No murmur or gallop. LUNGS: Clear bilaterally. No wheezing or rhonchi. Normal breathing efforts. ABDOMEN: Soft. Tender in the right upper quadrant with positive Espinoza sign. No ascites. No organomegaly. No rebound. Negative bowel sounds. EXTREMITIES: No edema or cyanosis. ASSESSMENT AND PLAN: 1. Cholelithiasis with acute cholecystitis and obstruction. We will start the patient empirically on Unasyn and send blood culture. HIDA scan confirmed the results need cholecystectomy for source control general surgery is following. She is scheduled for surgery tomorrow. 2. Urinary tract infection. We will send urine for culture. Start Unasyn empiric treatment. 3. Abdominal pain with nausea due to the above. Continue pain management as per the primary team. Thank you for the consult. Infectious Disease will continue to follow. Bobby Story M.D. DR: MADDIE JOB#: [id number] CC: REA
--- NOTE | 2016-12-23 21:18 | History and Physical Report ---
DATE OF ADMISSION: 12/22/2016 HISTORY OF PRESENT ILLNESS: The patient comes in and admitted for cholecystitis and abdominal pain. The patient also has basically abdominal pain and epigastric pain for four days and vomiting for the same amount of time. The patient has a history of gallstones for the past year, but the patient just delivered a baby and we did not feel it would not be able to do cholecystectomy at this time point. The patient is stating that her symptoms are definitely getting worse and is at this point. The patient has been admitted for acute cholecystitis. has been consulted to see this patient. The patient is also complaining of nausea. PAST MEDICAL HISTORY: Significant for gallstones. PAST SURGICAL HISTORY: Appendectomy and . MEDICATIONS: None. SOCIAL HISTORY: History of smoking. No history of drug or alcohol abuse. FAMILY HISTORY: Noncontributory. REVIEW OF SYSTEMS: HEENT: Denies headache. Respiratory: Denies shortness of breath. Denies cough. Cardiovascular: Denies chest pain. Gastrointestinal: She does have nausea, vomiting, and abdominal pain in the right upper quadrant for the past four days that is getting worse. Extremities: Denies pain. Central Nervous System: Denies change in vision or speech pattern. She feels weak. PHYSICAL EXAMINATION: VITAL SIGNS: Temperature 97.8 degrees, pulse is 80, and blood pressure 115/85. HEENT: PERRLA. NECK: Supple. No lymphadenopathy. CHEST: Clear to auscultation. GASTROINTESTINAL: Soft and tender in the right upper quadrant. No rebound. Her abdomen is soft. Positive bowel sounds. EXTREMITIES: No edema. Reflexes are equal on both sides. Able to move all four extremities. Alert and oriented x3. LABORATORY AND DIAGNOSTIC DATA: WBC of 6.9, hemoglobin 13.4 and platelet 222,000. Sodium 138, potassium 3.9, BUN 11, creatinine 0.6 and glucose of 96. ASSESSMENT AND PLAN: 1. Acute cholecystitis. 2. Abdominal pain. I have asked Dr. Burroughs, Dr. Vázquez, Dr. Serra, Dr. Story, and Dr. Mark to see the patient for the above-mentioned diagnoses and treatment. Dr. Smith will be in the charge of clearance for this surgery, cholecystectomy in case Dr. Burroughs wants to do it. Antibiotics per Dr. Story. Asia Pack M.D. DR: YANICK JOB#: [id number] CC:
[2016-12-24] VITALS (11 sets, daily range): BP systolic 95–115; BP diastolic 47–69
[2016-12-24] MEDS: Ampicillin/Sulbactam Sod 3 GM in NS 55 ML IVPB SCH ×5 (00:16→23:26)
--- NOTE | 2016-12-24 01:58 | Consultation ---
DATE OF CONSULTATION: 12/23/2016 CARDIOLOGY CONSULTATION: REFERRING PHYSICIAN: Asia Pack M.D. REASON FOR CONSULTATION: Preoperative cardiac assessment for noncardiac surgery. HISTORY OF PRESENT ILLNESS: The patient is a very pleasant 26-year-old female, who presented to the hospital with right upper quadrant flank pain just about a day associated nausea. The patient has been having the same pain for the past year. She was told that she required to have removal of gallbladder, however, because of her she was treated conservatively and placed on [place] for pain. She presented to the hospital with recurrence of right upper quadrant pain and pain intensity of 9/10. She has associated tenderness in the right upper quadrant. Denies any fever or chills. PAST MEDICAL HISTORY: None. She is a 3 para 3. PAST SURGICAL HISTORY: None. MEDICATIONS: List of medications, none besides [place] for pain control. ALLERGIES: No known drug allergies. SOCIAL HISTORY: Denies any tobacco, alcohol, or illicit drug use. REVIEW OF SYSTEMS: A 12-system review done essentially negative except what mentioned in the history of present illness. PHYSICAL EXAMINATION: VITAL SIGNS: Blood pressure was 108/67, pulse of 77, respiration 14, temperature 97.9 degrees Fahrenheit, and O2 saturation 100% on room air. GENERAL: The patient is a very delightful 26-year-old female, in no apparent respiratory distress. Alert and oriented x4. HEENT: Atraumatic and normocephalic. Anicteric. Pupils are equal, round, and reactive to light and accommodation. Extraocular muscles intact. NECK: JVP less than 5 cm. No carotid bruits. Carotid upstroke is 2+ bilaterally. CVS: Normal S1 and S2. Regular rate and rhythm. No murmurs, gallops, or rubs. PMI is at the fourth intercostal space in the midclavicular line. LUNGS: Clear to auscultation bilaterally. ABDOMEN: Right upper quadrant tenderness. Positive Espinoza sign. Soft. No hepatosplenomegaly. Positive bowel sounds. EXTREMITIES: No evidence of edema, clubbing, or cyanosis. LABORATORY FINDINGS: WBC 6.9, hemoglobin 13.4, hematocrit 39.9, and platelet count 222,000. Sodium 138, potassium 3.9, chloride 98, bicarb 25, BUN 11, creatinine 0.6, and glucose 96 .Calcium is 9.3. INR is 1.1. ASSESSMENT AND PLAN: The patient is a very unfortunate 26-year-old female with right upper quadrant pain. HIDA scan showed cystic duct obstruction. The patient is prepared for laparoscopic cholecystectomy in the morning. The patient is an healthy young female with no prior history of coronary artery disease, congestive heart failure, or cardiac arrhythmias. There is no risk factors for coronary artery disease. The patient is asymptomatic from the cardiac standpoint. The patient undergoing an intermediate risk procedure. The patient is cleared for the above surgery with risk of coronary artery event perioperatively estimated to be less than 1%. I would like to thank, Dr. Pack for courtesy of this consultation Markie Smith M.D. DR: Nan JOB#: [id number] CC:
--- NOTE | 2016-12-24 02:28 | Consultation ---
DATE OF CONSULTATION: 12/23/2016 GASTROLOGY CONSULTATION REPORT CHIEF COMPLAINT: I was asked to see this patient by Dr. Asia Pack for evaluation of abdominal pain and gallbladder. HISTORY OF PRESENT ILLNESS: The patient is a pleasant 26-year-old woman, who has had five days of abdominal pain with nausea and vomiting. She has had this symptom before in the past year, which comes and goes. She was told about a year ago after she delivered her child that she had a gallstone and she was advised for removal of the gallbladder immediately after childbirth. However, the patient refused at that hospital and is coming in today with this pain and intermittent dizziness. The patient now comes to the hospital due to severe pain. PAST MEDICAL HISTORY: Otherwise negative. MEDICATIONS: See the chart list for details. ALLERGIES: None. SOCIAL HISTORY: The patient does not smoke or drink. FAMILY HISTORY: Noncontributory. REVIEW OF SYSTEMS: Otherwise negative. PHYSICAL EXAMINATION: GENERAL: The patient is a pleasant woman, seen in her room. HEENT: Normocephalic and atraumatic. Sclerae anicteric. Oropharynx clear. NECK: Supple. CHEST: Clear to auscultation. CARDIOVASCULAR: Revealed a regular rate. ABDOMEN: Soft with some mild right upper quadrant and epigastric tenderness. EXTREMITIES: Revealed no edema. LABORATORY DATA: Noted. ASSESSMENT: This patient presents with biliary colic and possible acute cholecystitis. The patient will have to be kept NPO and seen by the surgical staff. The gallbladder removal is clearly indicated and would resolve her symptom complex. RECOMMENDATIONS: 1. Surgical staff evaluation. 2. Keep NPO. 3. Intravenous fluids. 4. Follow laboratory parameters and exam. Thank you for asking me to participate in the care of this patient. Maya Candelario M.D. DR: FELICIA JOB#: [id number] CC:
--- NOTE | 2016-12-24 02:28 | Consultation ---
DATE OF CONSULTATION: 12/23/2016 PAIN MANAGEMENT CONSULTATION CONSULTING PHYSICIAN: Lo Vázquez M.D. PHYSICIAN WEEKEND CAREGIVER: Alvarado Cottrell REFERRING PHYSICIAN: Asia Pack M.D. CHIEF COMPLAINT: Abdominal pain. HISTORY OF PRESENT ILLNESS: This is a 26-year-old female admitted to [facility] for initial comprehensive pain management consultation. The patient reports that he has been having severe abdominal pain. It is an off and on pain, 10/10, a sharp pain, increasing with movement and decreased with medication. The patient was found to have gallstones and acute cholecystitis and obstruction, seen by Infectious Disease, and possibly going for surgery tomorrow. She is on morphine 2 mg IV every four hours as needed for pain. We were consulted so that the patient would have adequate pain control while here in the hospital. PAST MEDICAL HISTORY: Denies. PAST SURGICAL HISTORY: Appendectomy and . ALLERGIES: No known drug allergies. SOCIAL HISTORY: Denies smoking, drinking alcohol, or drug abuse. REVIEW OF SYSTEMS: Denies rash, fever, chills, sweating, dizziness, drowsiness, blurred vision, sore throat, or change in weight. No shortness of breath or chest pain. No bowel or bladder incontinence. She is complaining of nausea vomiting, and abdominal pain. PHYSICAL EXAMINATION: GENERAL: Alert, awake, and oriented x3. VITAL SIGNS: Blood pressure 115/85, heart rate 80, oxygen saturation 100%, respiratory rate is 18, and temperature 98.8 degrees Fahrenheit. Height is 5 feet 3 inches and weight is 135 pounds. HEENT: PERRLA. NECK: Range of motion is full in all directions. No tenderness. No adenopathy. LUNGS: Clear. HEART: Regular. ABDOMEN: Tenderness to palpation. BACK: Range of motion is decreased due to the patient's clinical condition. EXTREMITIES: Upper extremity range of motion is full in all directions. Motor is intact. No cyanosis. No clubbing. No edema. Sensory is intact. Reflexes are not obtainable. No adenopathy. Lower extremity range of motion is full in all directions. Motor is intact. No cyanosis. No clubbing. No edema. Sensory is intact. Reflexes are not obtainable. No adenopathy. ASSESSMENT: Intractable abdominal pain, cholelithiasis, acute cholecystitis, and obstruction. PLAN: The patient will be continued on morphine 2 mg IV every four hours as needed for moderate pain and started on morphine 4 mg IV every four hours as needed for severe pain and [place] 10/325 one tablet every four hours as needed for moderate pain. At this time, the patient was discussed with Dr. Vázquez and Dr. Vázquez concurred. We will follow up the patient. Thank you very much for the courtesy of this consultation. Lo Vázquez M.D. THOMAS Cottrell DR: ANNABEL JOB#: [id number] CC: REA
--- NOTE | 2016-12-24 07:05 | Pre-Procedure Note/Attestation ---
Pre-Procedure Note/Attestation Complete Prior to Procedure Planned Procedure: not applicable Procedure Narrative: laparoscopic cholecystectomy; possible open Indications for Procedure Pre-Operative Diagnosis: acute cholecystitis Attestation I attest that I discussed the nature of the procedure; its benefits; risks and complications; and alternatives (and the risks and benefits of such alternatives ), prior to the procedure, with the patient (or the patient's legal personal banking representative). I attest that, if there was a reasonable possibility of needing a blood transfusion, the patient (or the patient's legal personal banking representative) was given the [facility] standardized written summary, pursuant to the [place] Blood Safety Act ([place] Health and Safety Code # 1645, as amended). I attest that I re-evaluated the patient just prior to the surgery and that there has been no change in the patient's H&P, except as documented below: Nathaniel Farmer Dec 24, 2016 07:05
[2016-12-24] MEDS ORDERED: Surgicel 4in x 8in TOPIC ONE (07:17)
[2016-12-24] MEDS ORDERED: Iothalamate Meglumine 60% 30ML INJ ONE ×2 (07:17→10:18)
[2016-12-24] MEDS ORDERED: Bupivacaine w/Epi 0.25% 30ml Vial INJ ONE (07:17)
[2016-12-24] MEDS ORDERED: NS Irrig 1000ml IRRIG ONE (07:30)
[2016-12-24] MEDS ORDERED: Succinylcholine 20mg/ml 10ml vial ONE ×2 (07:30→08:00)
--- NOTE | 2016-12-24 07:35 | Anethesia Preoperative Eval ---
Anesthesia Pre-op PMH/ROS General Date of Evaluation: Dec 24, 2016 Time of Evaluation: 07:35 Anesthesiologist: Paras ASA Score: ASA 2 Mallampati Score Class I : Soft palate, uvula, fauces, pillars visible Class II: Soft palate, uvula, fauces visible Class III: Soft palate, base of uvula visible Class IV: Only hard plate visible Mallampati Classification: Class II Surgeon: Manjeet Diagnosis: Symptomatic cholelitiasis Surgical Procedure: Laparoscopic cholecystectomy Anesthesia History: none Family History: no anesthesia problems Allergies: Coded Allergies: No Known Allergies (Unverified , 12/22/16) Medications: see eMAR Past Medical History Cardiovascular: Denies: CAD, HTN, ID, arrhythmia, other, valve dz Pulmonary: Denies: COPD, BRANDON, asthma, other Gastrointestinal/Genitourinary: Reports: GERD, other - Recurrent abdominal pain , Denies: CRI, ESRD Neurologic/Psychiatric: Denies: CVA, TIA, dementia, depression/anxiety, other Endocrine: Denies: DM, hypothyroidism, other, steroids HEENT: Denies: GULKANA (L), GULKANA (R), cataract (L), cataract (R), glaucoma, other Hematology/Immune: Denies: DVT, anemia, bleeding disorder, other Musculoskeletal/Integumentary: Denies: DDD, DJD, OA, RA, edema, other PMH Narrative: as above PSxH Narrative: C-sectionx3 Lap appendectomy Anesthesia Pre-op Phys. Exam Physician Exam Last Vital Signs Date Time Temp Pulse Resp B/P Pulse Ox O2 Delivery O2 Flow Rate FiO2 12/24/16 04:00 97.7 77 18 102/58 92 Room Air Constitutional: NAD Neurologic: CN 2-12 intact Cardiovascular: RRR, no M/R/G Respiratory: CTA Gastrointestinal: S/NT/ND Airway Exam Mallampati Score: Class II MO: full Neck: flexible ROM: full Teeth: intact Dentures: no lower, no upper Anesthesia Pre-op A/P Labs Coagulation Test 12/23/16 16:15 Prothrombin Time 10.8 SEC (9.30-11.50) Prothromb Time International Ratio 1.1 (0.9-1.1) Activated Partial Thromboplast Time 29 SEC (23-33) Risk Assessment & Plan Assessment: ASA 2 Plan: GA with ETT PONV prevention Status Change Before Surgery: No Pre-Antibiotics Drug: Ancef 1gr. Given Within 1 Hr of Incision: Yes Time Given: 07:56 HARLEEN ELIZONDO M.D. Dec 24, 2016 07:35
[2016-12-24] MEDS ORDERED: Morphine Sulfate 10mg/ml Inj ONE (08:00)
[2016-12-24] MEDS ORDERED: Glycopyrrolate 0.2mg/ml 1ml Vial ONE (08:00)
[2016-12-24] MEDS ORDERED: Midazolam 2mg/2ml Inj ONE (08:00)
[2016-12-24] MEDS ORDERED: Ketorolac 30mg Inj ONE (08:00)
[2016-12-24] MEDS ORDERED: NS Irrig 1000ml ONE (08:00)
[2016-12-24] MEDS ORDERED: LR 1000ml ONE (08:00)
[2016-12-24] MEDS ORDERED: Sterile Water Irrig 1000ml IRRIG ONE (08:00)
[2016-12-24] MEDS ORDERED: Neostigmine 1mg/ml 10ml Inj ONE (08:00)
[2016-12-24] MEDS ORDERED: Propofol 10mg/ml 20ml IV ONE (08:00)
[2016-12-24] MEDS ORDERED: Zemuron 50mg/5ml Inj IV ONE (08:00)
[2016-12-24] MEDS ORDERED: LR 1000ml 1,000 ML IVLG SCH (08:16)
[2016-12-24] MEDS ORDERED: Hydromorphone 0.5mg/0.5ml inj IVP PRN ×2 (08:30→11:30)
[2016-12-24] MEDS ORDERED: Metoclopramide 10mg/2ml Inj IVP PRN ×2 (08:30→11:30)
[2016-12-24] MEDS ORDERED: Meperidine 25mg/ml Inj IV PRN (08:30)
[2016-12-24] MEDS ORDERED: Ketorolac 30mg Inj IV PRN (08:30)
[2016-12-24] MEDS ORDERED: DiphenhydrAMINE 50mg/ml Inj IVP PRN (08:30)
[2016-12-24] MEDS ORDERED: Midazolam 2mg/2ml Inj IVP PRN (08:30)
--- NOTE | 2016-12-24 11:28 | Brief Operative Note ---
Immediate Post Operative Note Operative Note Pre-op Diagnosis: acute cholecystitis Procedure: laparoscopic cholecystectomy with intraoperative cholangiogram Post-op Diagnosis: same as pre-op - multiple large impacted stones in cystic duct Findings: consistent w/pre-op dx studies, other - multiple large impacted stones in cystic duct Surgeon: Manjeet Multiple Cut Off Saw Operator: Darian Anesthesiologist: Paras Anesthesia: general Specimen: yes - gallbladder and stones Complications: none Condition: stable Fluids: 2000cc Estimated Blood Loss: volume - 100cc Drains: none Implant(s) used?: No Nathaniel Farmer Dec 24, 2016 11:28
[2016-12-24] MEDS ORDERED: Milk of Magnesia 30ml Ud ORAL PRN (11:30)
--- NOTE | 2016-12-24 11:39 | Immediate Post-Op Evaluation ---
Immediate Post-Op Evalulation Immediate Post-Op Evalulation Procedure: Laparoscopic cholecystectomy with cholangiogram Date of Evaluation: Dec 24, 2016 Time of Evaluation: 11:38 IV Fluids: 1600 Blood Products: none Estimated Blood Loss: 100 Urinary Output: 150 Blood Pressure Systolic: 108 Blood Pressure Diastolic: 57 Pulse Rate: 92 Respiratory Rate: 22 O2 Sat by Pulse Oximetry: 98 Temperature (Fahrenheit): 98.6 Pain Score (1-10): 2 Nausea: No Vomiting: No Complications none Patient Status: awake, patent, extubated, none Hydration Status: adequate HARLEEN ELIZONDO M.D. Dec 24, 2016 11:39
--- NOTE | 2016-12-24 14:46 | General Progress Note ---
Assessment/Plan Problem List: (1) Abdominal pain ICD Codes: R10.9 - Unspecified abdominal pain SNOMED: 68482271 (2) cholecystitis Status: progressing Assessment/Plan acute cholycystitis surgray per dr mendoza group abx per id Subjective Gastrointestinal/Abdominal: Reports: abdominal pain, nausea Allergies: Coded Allergies: No Known Allergies (Unverified , 12/22/16) Objective Last 24 Hour Vital Signs Date Time Temp Pulse Resp B/P Pulse Ox O2 Delivery O2 Flow Rate FiO2 12/24/16 12:47 97.9 92 14 113/69 95 Nasal Cannula 12/24/16 12:35 98.7 12/24/16 12:15 98.7 89 15 108/56 100 Nasal Cannula 3.0 12/24/16 12:05 93 13 107/58 100 Nasal Cannula 3.0 12/24/16 11:50 93 11 107/62 100 Nasal Cannula 3.0 12/24/16 11:40 91 14 107/59 100 Nasal Cannula 3.0 12/24/16 11:39 92 22 98 12/24/16 11:37 96 17 108/59 100 Simple Mask 6.0 12/24/16 11:32 98.8 101 18 115/59 100 Simple Mask 6.0 12/24/16 04:00 97.7 77 18 102/58 92 Room Air 12/24/16 00:00 98.1 73 18 101/53 95 Room Air 12/23/16 19:00 97.9 67 18 96/49 98 Room Air 12/23/16 16:00 96.8 70 20 100/58 98 Room Air Intake and Output 12/23/16 12/24/16 19:00 07:00 Intake Total 580 ml 1510 ml Balance 580 ml 1510 ml Intake Oral 540 ml IV Total 580 ml 970 ml # Voids 3 6 Laboratory Tests 12/23/16 16:15: Prothrombin Time 10.8, Prothromb Time International Ratio 1.1, Activated Partial Thromboplast Time 29 Height (Feet): 5 Height (Inches): 0.25 Weight (Pounds): 135 Cardiovascular: normal rate Respiratory/Chest: lungs clear Abdomen: tender Asia Pcak MD Dec 24, 2016 14:46
--- NOTE | 2016-12-24 15:45 | Diagnostic Imaging Report ---
Indication: Pain Comparison: None Findings: Intraoperative cholangiogram performed demonstrating filling defect within the proximal part of the CBD. The defect could be due to air. There is no obstruction. There is no leak of contrast identified. CBD is patent with demonstration of contrast extending into the duodenum noted. Impression: Intraoperative cholangiogram.
--- NOTE | 2016-12-24 16:40 | Operative Note - Dictated ---
DATE OF OPERATION: 12/24/2016 PREOPERATIVE DIAGNOSES: Cholelithiasis, acute cholecystitis. POSTOPERATIVE DIAGNOSES: Cholelithiasis, acute cholecystitis. PROCEDURE: Laparoscopic cholecystectomy with cholangiogram. SURGEON: Jaspal Burroughs M.D. IMPORTER OR EXPORTER: Dr. Carlos Farmer. ANESTHESIA: General endotracheal. ANESTHESIOLOGIST: Demetrio Crain M.D. INDICATIONS FOR SURGERY: This 26-year-old female presented with a two-day history of upper abdominal pain. The patient was told she had gallstones in April of 2016 when she was one week , and she had some abdominal tenderness on exam. Her liver function tests were normal. CBC was normal with a white blood count of 7300. A HIDA scan was obtained, which showed nonfilling of the gallbladder. A CT scan and ultrasound confirmed the presence of a large dilated gallbladder with stones. She was advised to undergo a laparoscopic cholecystectomy, possible open cholecystectomy. The nature, risks, and benefits of the procedure were explained. OPERATIVE FINDINGS: Exploration of the abdominal cavity revealed no ascites. The liver was normal in size and texture. The gallbladder was markedly dilated with a tense gallbladder wall consistent with acute cholecystitis. There was extensive inflammation in the area of the portal structures. There was an impacted stone near the junction of the neck of the gallbladder and cystic duct. Further dissection revealed another stone near the junction with the common bile duct. An intraoperative cholangiogram revealed a dilated common duct with passage of dye into the duodenum. The common hepatic and biliary radicles were identified. There was a filling defect of the common bile duct near the takeoff with the cystic duct. No abnormalities are noted on the stomach or duodenum. OPERATIVE TECHNIQUE: With the patient in the supine position after induction of adequate general endotracheal anesthesia, the abdomen was prepped and draped in sterile fashion. A time-out was called. A small puncture wound was made above the umbilicus. A Veress needle was introduced into the abdominal cavity. The intraperitoneal position was confirmed by saline instillation and the drop test. The abdomen was insufflated with 5 liters of carbon dioxide. The Veress needle was removed. The puncture wound was expanded and a 5 mm trocar was introduced. The abdomen was inspected with the 5 mm 30-degree angle laparoscope. An 11 mm trocar was introduced in the subxiphoid region slightly to the right of the midline through a transverse incision. A 5 mm port was introduced in the right lateral abdomen near the anterior axillary line. A grasper was obtained to elevate the fundus of the gallbladder. An aspiration trocar was passed into the gallbladder wall, and 120 mL of bile were aspirated. With the aspiration of the bile, the gallbladder fundus was elevated with the help of a ratcheted grasper. Another 5 mm trocar was introduced in the mid abdomen near the midclavicular line. The thickened peritoneum near the neck of the gallbladder was carefully incised with electrocautery. There was extensive inflammation in the area. A lymph node was identified and the lymph node was dissected and removed from the operative field. Due to the extensive inflammation, the peritoneum above the neck of the gallbladder was also opened with blunt dissection and electrocautery. The body of the gallbladder was dissected by taking the lateral peritoneal attachments adjacent to the liver in order to obtain better exposure of the cystic duct. A stone was identified at the neck of the gallbladder. The stone was identified and the overlying wall on the neck of the gallbladder was dissected. There was entry into the neck of the gallbladder with this maneuver. The stone was carefully dislodged. There was no bile expressed through the neck of the gallbladder with this maneuver. In order to gain better access to the area, the posterior attachments to the body of the gallbladder were carefully taken down by blunt dissection and electrocautery. By gaining better mobility of the structures, the tedious dissection along the cystic duct was carefully undertaken. With this mobilization, a second stone was encountered distal to the stone on the neck of the gallbladder. This was carefully manipulated and the stone was removed through the aperture on the neck of the gallbladder. The thickened peritoneum on the cystic duct was slowly dissected. A small puncture wound was made in the cystic duct. A cholangiocatheter was introduced and cholangiogram was obtained. This showed a dilated common bile duct. There was passage of dye into the duodenum with nice tapering of the duct. The common hepatic duct and right and left biliary radicals were identified. There was a filling defect noted in the common bile duct near the junction with the cystic duct. The cholangiocatheter was removed. Due to the thickened nature of the cystic duct, it became obvious that a conventional hemoclip would not suffice. The 11 trocar in the subxiphoid region was changed to a 12 mm trocar in preparation for closure of the cystic duct with an Endo-JACKELYN apparatus. The neck of the gallbladder was divided completely. The cystic artery was identified and hemoclipped. With the cystic artery divided, it was possible to pass the Endo-JACKELYN stapler across the thickened cystic duct. The stapler was properly positioned and fired. The remaining portion of the gallbladder was dissected off of the liver bed with electrocautery. An EndoCatch apparatus was obtained in order to remove the gallbladder and the fragments of the neck of the gallbladder and cystic duct. The gallbladder was removed through the subxiphoid port. The subhepatic space was irrigated and aspirated. Several stone fragments were removed. The liver bed was inspected. A small oozing area laterally was cauterized. A piece of Surgicel gauze was placed in the liver bed. The lower abdomen was inspected by passing the laparoscope through the subxiphoid port. A flimsy adhesion to the anterior abdominal wall was divided with electrocautery. The trocars were removed under laparoscopic visualization. The pneumoperitoneum was released. The subxiphoid port was closed with an 0 Vicryl fascial suture, followed by a 4-0 Vicryl subcutaneous suture. The skin was closed with a running 4-0 Vicryl subcuticular stitch. The remaining 5 mm wounds were closed with interrupted 4-0 Vicryl subcuticular sutures. The puncture wounds were injected with 0.25% Marcaine with epinephrine solution. Sterile dressings were applied. The patient tolerated the procedure well and was returned to the recovery room in stable condition. ESTIMATED BLOOD LOSS: 50 mL. Jaspal Burroughs M.D. DR: JHONATHAN JOB#: [id number] CC:
--- NOTE | 2016-12-24 17:02 | Infectious Diseases Prog Note ---
Assessment/Plan Problems: (1) Choledocholithiasis with acute cholecystitis with obstruction Assessment & Plan: S/P LAP Cholecystectomy , continue Unasyn empirically, await blood culture, general surgery is following (2) UTI (urinary tract infection) Assessment & Plan: urine culture showed mixed sara, most likely colonization , continue Unasyn empirically (3) Abdominal pain Assessment & Plan: due to the above, continue pain management as per primary Subjective Constitutional: Reports: anorexia, fatigue Gastrointestinal/Abdominal: Reports: bloating, constipation, nausea Neurologic: Reports: weakness Musculoskeletal: Reports: pain Allergies: Coded Allergies: No Known Allergies (Unverified , 12/22/16) All Systems: reviewed and negative except above Objective Vital Signs Last 24 Hour Vital Signs Date Time Temp Pulse Resp B/P Pulse Ox O2 Delivery O2 Flow Rate FiO2 12/24/16 12:47 97.9 92 14 113/69 95 Nasal Cannula 12/24/16 12:35 98.7 12/24/16 12:15 98.7 89 15 108/56 100 Nasal Cannula 3.0 12/24/16 12:05 93 13 107/58 100 Nasal Cannula 3.0 12/24/16 11:50 93 11 107/62 100 Nasal Cannula 3.0 12/24/16 11:40 91 14 107/59 100 Nasal Cannula 3.0 12/24/16 11:39 92 22 98 12/24/16 11:37 96 17 108/59 100 Simple Mask 6.0 12/24/16 11:32 98.8 101 18 115/59 100 Simple Mask 6.0 12/24/16 04:00 97.7 77 18 102/58 92 Room Air 12/24/16 00:00 98.1 73 18 101/53 95 Room Air 12/23/16 19:00 97.9 67 18 96/49 98 Room Air Height (Feet): 5 Height (Inches): 0.25 Weight (Pounds): 135 General Appearance: WD/WN, no acute distress HEENT: normocephalic, atraumatic, anicteric, mucous membranes moist Respiratory/Chest: chest wall non-tender, lungs clear, normal breath sounds, no respiratory distress, no accessory muscle use Cardiovascular: normal peripheral pulses, normal rate, regular rhythm, no gallop/murmur Abdomen: no organomegaly, non distended, no mass, absent bowel sounds, tender Extremities: no cyanosis, no clubbing Skin: no rash, no lesions, no ulcers, other - surgical wounds looks ok Microbiology Date/Time Source Procedure Growth Status 12/23/16 05:20 Blood Blood Culture - Preliminary NO GROWTH AFTER 24 HOURS Resulted 12/23/16 05:10 Blood Blood Culture - Preliminary NO GROWTH AFTER 24 HOURS Resulted 12/22/16 15:43 Urine,Clean Catch Urine Culture - Preliminary Mixed Gram Positive Organism Resulted Current Medications Medications (Trade) Dose Ordered Sig/Steven Route PRN Reason Start Time Stop Time Status Last Admin Dose Admin Acetaminophen (Tylenol) 650 mg Q4H PRN ORAL Temp > 100.5 12/24/16 14:10 01/21/17 22:29 Ampicillin Sodium/ Sulbactam Sodium/ Sodium Chloride (Unasyn/Sodium Chloride) 55 ml @ 110 mls/hr Q6HR IVPB 12/23/16 12:00 12/30/16 11:59 12/24/16 13:00 Docusate Sodium (Colace) 100 mg TWICE A DAY ORAL 12/24/16 18:00 01/23/17 17:59 Hydromorphone HCl (Dilaudid) 0.5 mg Q3H PRN IVP Pain Score 1-3 12/24/16 11:30 12/31/16 11:29 Hydromorphone HCl (Dilaudid) 1 mg Q3H PRN IVP pain score 4-6 12/24/16 12:00 12/31/16 11:59 Hydromorphone HCl (Dilaudid) 2 mg Q3H PRN IVP pain score 7-10 12/24/16 11:30 12/31/16 11:29 Magnesium Hydroxide (Mom) 30 ml BIDPRN PRN ORAL Constipation 12/24/16 11:30 01/23/17 11:29 Metoclopramide HCl (Reglan) 10 mg Q6H PRN IVP Nausea & Vomiting 12/24/16 11:30 01/23/17 11:29 Ondansetron HCl (Zofran) 4 mg Q6H PRN IVP Nausea & Vomiting 12/24/16 11:30 01/23/17 11:29 Sodium Chloride 1,000 ml @ 75 mls/hr [id number] IV 12/22/16 22:30 01/21/17 22:29 12/24/16 01:28 Bobby Story M.D. Dec 24, 2016 17:02
--- NOTE | 2016-12-24 17:20 | General Progress Note ---
Progress Note Progress Note Surgery: \patient seen post op. doing well. recovering well. pain as anticipated given surgery. tolerating diet. Reviewed and discussed surgery and cholangiogram findings with patient. difficult to determine if filling defect stone or air. given multiple large stones in cystic duct there is potential for passage of stone into CBD during surgery. Will plan for MRCP tomorrow to ensure biliary tract without stones prior to discharge. npo p midnight mrcp tomorrow AM labs Nathaniel Farmer Dec 24, 2016 17:20
[2016-12-24] MEDS: Docusate 100mg cap ORAL SCH (17:24)
--- NOTE | 2016-12-24 18:19 | Cardiology Progress Note ---
Assessment/Plan Assessment/Plan 1. Sinus tachycardia, increase IV fluid 10 100 cc/hr 2. Hypotension, postop day 0, NS IV bolus 3. Acute cholecystitis, s/p lap.cholecystectomy, POD #0 Subjective Subjective Transferred to the med-surg unit. s/p Lap Cholecystectomy POD #0 Objective Last 24 Hour Vital Signs Date Time Temp Pulse Resp B/P Pulse Ox O2 Delivery O2 Flow Rate FiO2 12/24/16 16:00 98.4 103 20 97/64 98 Room Air 12/24/16 12:47 97.9 92 14 113/69 95 Nasal Cannula 12/24/16 12:35 98.7 12/24/16 12:15 98.7 89 15 108/56 100 Nasal Cannula 3.0 12/24/16 12:05 93 13 107/58 100 Nasal Cannula 3.0 12/24/16 11:50 93 11 107/62 100 Nasal Cannula 3.0 12/24/16 11:40 91 14 107/59 100 Nasal Cannula 3.0 12/24/16 11:39 92 22 98 12/24/16 11:37 96 17 108/59 100 Simple Mask 6.0 12/24/16 11:32 98.8 101 18 115/59 100 Simple Mask 6.0 12/24/16 04:00 97.7 77 18 102/58 92 Room Air 12/24/16 00:00 98.1 73 18 101/53 95 Room Air 12/23/16 19:00 97.9 67 18 96/49 98 Room Air Intake and Output 12/23/16 12/24/16 19:00 07:00 Intake Total 580 ml 1510 ml Balance 580 ml 1510 ml Intake Oral 540 ml IV Total 580 ml 970 ml # Voids 3 6 Microbiology Date/Time Source Procedure Growth Status 12/23/16 05:20 Blood Blood Culture - Preliminary NO GROWTH AFTER 24 HOURS Resulted 12/23/16 05:10 Blood Blood Culture - Preliminary NO GROWTH AFTER 24 HOURS Resulted 12/22/16 15:43 Urine,Clean Catch Urine Culture - Preliminary Mixed Gram Positive Organism Resulted Objective HEENT: Atraumatic and normocephalic. Anicteric. Pupils are equal, round, and reactive to light and accommodation. Extraocular muscles intact. NECK: JVP less than 5 cm. No carotid bruits. Carotid upstroke is 2+ bilaterally. CVS: Normal S1 and S2. Regular rate and rhythm. No murmurs, gallops, or rubs. PMI is at the fourth intercostal space in the midclavicular line. LUNGS: Clear to auscultation bilaterally. ABDOMEN: Right upper quadrant tenderness. Positive Espinoza sign. Soft. No hepatosplenomegaly. Positive bowel sounds. EXTREMITIES: No evidence of edema, clubbing, or cyanosis. MALVIN AMRR Dec 24, 2016 18:19
[2016-12-24] MEDS: HYDROmorphone 1mg/ml Carpuject IVP PRN (21:18)
[2016-12-25] VITALS: BP 101/61
[2016-12-25] MEDS: HYDROmorphone 1mg/ml Carpuject IVP PRN ×3 (00:24→21:25)
[2016-12-25] MEDS: Ampicillin/Sulbactam Sod 3 GM in NS 55 ML IVPB SCH ×4 (01:05→17:46)
[2016-12-25 04:00] VITALS: BP 101/58
[2016-12-25 06:25] LABS: BASOPHILS % (AUTO) 1.5 % (0.0-2.0); EOSINOPHILS % (AUTO) 3.9 % (0.0-3.0); LYMPHOCYTES % (AUTO) 31.6 % (20.0-45.0); MEAN CORPUSCULAR HEMOGLOBIN 27.1 PG (27.0-31.0); MEAN CORPUSCULAR HGB CONC 32.6 G/DL (32.0-36.0); MEAN CORPUSCULAR VOLUME 83 FL (80-99); MEAN PLATELET VOLUME 8.4 FL (6.5-10.1); MONOCYTES % (AUTO) 9.9 % (1.0-10.0); PLATELET COUNT 212 K/UL (150-450); RED BLOOD COUNT 4.85 M/UL (4.20-5.40); RED CELL DISTRIBUTION WIDTH 12.5 % (11.6-14.8); WHITE BLOOD COUNT 5.2 K/UL (4.8-10.8)
[2016-12-25 06:54] LABS: ALANINE AMINOTRANSFERASE 17 U/L (3-33); ALBUMIN/GLOBULIN RATIO 0.9 (1.0-2.7); ANION GAP 12 (5-15); ASPARTATE AMINO TRANSFERASE 19 U/L (5-40); CALCIUM 9.1 mg/dL (8.6-10.2); CARBON DIOXIDE 27 mEQ/L (20-30); CHLORIDE 102 mEQ/L (98-107); GLOMERULAR FILTRATION RATE > 60 mL/min (>60); HEMOLYSIS 2; POTASSIUM 4.2 mEQ/L (3.4-4.9); SODIUM 141 mEQ/L (135-145); TOTAL PROTEIN 7.1 g/dL (6.6-8.7)
[2016-12-25 08:48] VITALS: BP 99/55
[2016-12-25] MEDS ORDERED: Norco 10mg/325mg tab ORAL PRN (09:15)
--- NOTE | 2016-12-25 09:20 | General Progress Note ---
Assessment/Plan Problem List: (1) Choledocholithiasis with acute cholecystitis with obstruction Assessment & Plan: S/P Laparoscopic cholecystectomy with cholangiogram. ICD Codes: K80.41 - Calculus of bile duct with cholecystitis, unspecified, with obstruction SNOMED: 22536610 (2) Abdominal pain Assessment & Plan: intractable ICD Codes: R10.9 - Unspecified abdominal pain SNOMED: 35820438 Assessment/Plan Patient will be continued on Dilaudid IV and started on [place] 10/325 one tablet every four hours as needed for moderate pain. RX for [place] 10/325mg PO 1 tab Q4-6H PRN 30 tabs was written for pt in anticipation for discharge. At this time, the patient was discussed with Dr. Vázquez and Dr. Vázquez concurred. Subjective Date patient seen: Dec 25, 2016 Time patient seen: 07:15 - am Allergies: Coded Allergies: No Known Allergies (Unverified , 12/22/16) Subjective REVIEW OF SYSTEMS: Denies rash, fever, chills, sweating, dizziness, drowsiness, blurred vision, sore throat, or change in weight. No shortness of breath or chest pain. No bowel or bladder incontinence. She is complaining of nausea vomiting, and abdominal pain. SUBJECTIVE: Patient is s/p Laparoscopic cholecystectomy with cholangiogram. Medication was changed to Dilaudid and her pain is a 5/10 today. Will be going for MRCP as per surgeon prior to discharge. RX will be written in anticipation for discharge. Objective Last 24 Hour Vital Signs Date Time Temp Pulse Resp B/P Pulse Ox O2 Delivery O2 Flow Rate FiO2 12/25/16 08:48 98.1 85 16 99/55 95 Room Air 12/25/16 06:58 98.1 12/25/16 04:00 98.1 63 18 101/58 99 Room Air 12/25/16 00:00 98.2 77 18 101/61 95 Nasal Cannula 2.0 12/24/16 19:00 99.3 82 20 95/47 97 Nasal Cannula 2.0 12/24/16 18:36 98.4 12/24/16 16:00 98.4 103 20 97/64 98 Room Air 12/24/16 12:47 97.9 92 14 113/69 95 Nasal Cannula 12/24/16 12:35 98.7 12/24/16 12:15 98.7 89 15 108/56 100 Nasal Cannula 3.0 12/24/16 12:05 93 13 107/58 100 Nasal Cannula 3.0 12/24/16 11:50 93 11 107/62 100 Nasal Cannula 3.0 12/24/16 11:40 91 14 107/59 100 Nasal Cannula 3.0 12/24/16 11:39 92 22 98 12/24/16 11:37 96 17 108/59 100 Simple Mask 6.0 12/24/16 11:32 98.8 101 18 115/59 100 Simple Mask 6.0 Intake and Output 12/24/16 12/25/16 19:00 07:00 Intake Total 1810 ml 1875 ml Output Total 250 ml Balance 1560 ml 1875 ml Intake Oral 720 ml IV Total 1810 ml 1155 ml Output Urine Total 150 ml Estimated Blood Loss 100 ml # Voids 8 Laboratory Tests 12/25/16 04:40: White Blood Count 5.2, Red Blood Count 4.85, Hemoglobin 13.1, Hematocrit 40.3, Mean Corpuscular Volume 83, Mean Corpuscular Hemoglobin 27.1, Mean Corpuscular Hemoglobin Concent 32.6, Red Cell Distribution Width 12.5, Platelet Count 212, Mean Platelet Volume 8.4, Neutrophils (%) (Auto) 53.0, Lymphocytes (%) (Auto) 31.6, Monocytes (%) (Auto) 9.9, Eosinophils (%) (Auto) 3.9H, Basophils (%) (Auto ) 1.5, Sodium Level 141, Potassium Level 4.2, Chloride Level 102, Carbon Dioxide Level 27, Anion Gap 12, Blood Urea Nitrogen 12, Creatinine 1.0H, Estimat Glomerular Filtration Rate > 60, Glucose Level 120H, Calcium Level 9.1, Total Bilirubin 0.4, Aspartate Amino Transf (AST/SGOT) 19, Alanine Aminotransferase (ALT/SGPT) 17, Alkaline Phosphatase 36, Total Protein 7.1, Albumin 3.5, Globulin 3.6, Albumin/Globulin Ratio 0.9L Height (Feet): 5 Height (Inches): 0.25 Weight (Pounds): 135 Objective GENERAL: Alert, awake, and oriented x3. HEENT: PERRLA. NECK: Range of motion is full in all directions. No tenderness. No adenopathy. LUNGS: Clear. HEART: Regular. ABDOMEN: Tenderness to palpation. BACK: Range of motion is decreased due to the patient's clinical condition. EXTREMITIES: No cyanosis. No clubbing. No edema. NEURO: No changes. YAJAIRA DUARTE Dec 25, 2016 09:20
[2016-12-25] MEDS: Docusate 100mg cap ORAL SCH ×3 (09:46→18:00)
--- NOTE | 2016-12-25 10:46 | General Surgery Progress Note ---
General Surgery-Progress Note Subjective Procedure Performed laparoscopic cholecystectomy with intraoperative cholangiogram Symptoms: improved Objective Last 24 Hour Vital Signs Date Time Temp Pulse Resp B/P Pulse Ox O2 Delivery O2 Flow Rate FiO2 12/25/16 08:48 98.1 85 16 99/55 95 Room Air 12/25/16 06:58 98.1 12/25/16 04:00 98.1 63 18 101/58 99 Room Air 12/25/16 00:00 98.2 77 18 101/61 95 Nasal Cannula 2.0 12/24/16 19:00 99.3 82 20 95/47 97 Nasal Cannula 2.0 12/24/16 18:36 98.4 12/24/16 16:00 98.4 103 20 97/64 98 Room Air 12/24/16 12:47 97.9 92 14 113/69 95 Nasal Cannula 12/24/16 12:35 98.7 12/24/16 12:15 98.7 89 15 108/56 100 Nasal Cannula 3.0 12/24/16 12:05 93 13 107/58 100 Nasal Cannula 3.0 12/24/16 11:50 93 11 107/62 100 Nasal Cannula 3.0 12/24/16 11:40 91 14 107/59 100 Nasal Cannula 3.0 12/24/16 11:39 92 22 98 12/24/16 11:37 96 17 108/59 100 Simple Mask 6.0 12/24/16 11:32 98.8 101 18 115/59 100 Simple Mask 6.0 I&O Intake and Output 12/24/16 12/25/16 19:00 07:00 Intake Total 1810 ml 1875 ml Output Total 250 ml Balance 1560 ml 1875 ml Intake Oral 720 ml IV Total 1810 ml 1155 ml Output Urine Total 150 ml Estimated Blood Loss 100 ml # Voids 8 Laboratory Tests Test 12/25/16 04:40 White Blood Count 5.2 K/UL (4.8-10.8) Red Blood Count 4.85 M/UL (4.20-5.40) Hemoglobin 13.1 G/DL (12.0-16.0) Hematocrit 40.3 % (37.0-47.0) Mean Corpuscular Volume 83 FL (80-99) Mean Corpuscular Hemoglobin 27.1 PG (27.0-31.0) Mean Corpuscular Hemoglobin Concent 32.6 G/DL (32.0-36.0) Red Cell Distribution Width 12.5 % (11.6-14.8) Platelet Count 212 K/UL (150-450) Mean Platelet Volume 8.4 FL (6.5-10.1) Neutrophils (%) (Auto) 53.0 % (45.0-75.0) Lymphocytes (%) (Auto) 31.6 % (20.0-45.0) Monocytes (%) (Auto) 9.9 % (1.0-10.0) Eosinophils (%) (Auto) 3.9 % (0.0-3.0) H Basophils (%) (Auto) 1.5 % (0.0-2.0) Sodium Level 141 mEQ/L (135-145) Potassium Level 4.2 mEQ/L (3.4-4.9) Chloride Level 102 mEQ/L (98-107) Carbon Dioxide Level 27 mEQ/L (20-30) Anion Gap 12 (5-15) Blood Urea Nitrogen 12 mg/dL (7-23) Creatinine 1.0 mg/dL (0.5-0.9) H Estimat Glomerular Filtration Rate > 60 mL/min (>60) Glucose Level 120 mg/dL (74-106) H Calcium Level 9.1 mg/dL (8.6-10.2) Total Bilirubin 0.4 mg/dL (0.0-1.2) Aspartate Amino Transf (AST/SGOT) 19 U/L (5-40) Alanine Aminotransferase (ALT/SGPT) 17 U/L (3-33) Alkaline Phosphatase 36 U/L (35-104) Total Protein 7.1 g/dL (6.6-8.7) Albumin 3.5 g/dL (3.5-5.2) Globulin 3.6 g/dL Albumin/Globulin Ratio 0.9 (1.0-2.7) L Assessment Post-op Diagnosis 26 F s/p lap kofi for acute cholecystitis. Doing well. Incisional tenderness as anticipated. no n/v/f/c. tolerated diet yesterday. ambulatory. Exam benign. Labs this morning look good. Cholangiogram with filling defect that could be air vs stone. Will proceed with MRCP to ensure no retained stones. - MRCP - if clear, can resume diet and d/c home today - if retained stone will consult GI for ERCP. Nathaniel Farmer Dec 25, 2016 10:46
[2016-12-25 12:03] VITALS: BP 113/69
--- NOTE | 2016-12-25 12:04 | General Progress Note ---
Assessment/Plan Problem List: (1) Abdominal pain ICD Codes: R10.9 - Unspecified abdominal pain SNOMED: 53304107 (2) cholecystitis Status: progressing Assessment/Plan acute cholycystitis surgray per dr jain group afebrile rewieved chart and labs dc per surgeon Subjective Gastrointestinal/Abdominal: Reports: abdominal pain, nausea Allergies: Coded Allergies: No Known Allergies (Unverified , 12/22/16) Objective Last 24 Hour Vital Signs Date Time Temp Pulse Resp B/P Pulse Ox O2 Delivery O2 Flow Rate FiO2 12/25/16 08:48 98.1 85 16 99/55 95 Room Air 12/25/16 06:58 98.1 12/25/16 04:00 98.1 63 18 101/58 99 Room Air 12/25/16 00:00 98.2 77 18 101/61 95 Nasal Cannula 2.0 12/24/16 19:00 99.3 82 20 95/47 97 Nasal Cannula 2.0 12/24/16 18:36 98.4 12/24/16 16:00 98.4 103 20 97/64 98 Room Air 12/24/16 12:47 97.9 92 14 113/69 95 Nasal Cannula 12/24/16 12:35 98.7 12/24/16 12:15 98.7 89 15 108/56 100 Nasal Cannula 3.0 12/24/16 12:05 93 13 107/58 100 Nasal Cannula 3.0 Intake and Output 12/24/16 12/25/16 19:00 07:00 Intake Total 1810 ml 1875 ml Output Total 250 ml Balance 1560 ml 1875 ml Intake Oral 720 ml IV Total 1810 ml 1155 ml Output Urine Total 150 ml Estimated Blood Loss 100 ml # Voids 8 Laboratory Tests 12/25/16 04:40: White Blood Count 5.2, Red Blood Count 4.85, Hemoglobin 13.1, Hematocrit 40.3, Mean Corpuscular Volume 83, Mean Corpuscular Hemoglobin 27.1, Mean Corpuscular Hemoglobin Concent 32.6, Red Cell Distribution Width 12.5, Platelet Count 212, Mean Platelet Volume 8.4, Neutrophils (%) (Auto) 53.0, Lymphocytes (%) (Auto) 31.6, Monocytes (%) (Auto) 9.9, Eosinophils (%) (Auto) 3.9H, Basophils (%) (Auto ) 1.5, Sodium Level 141, Potassium Level 4.2, Chloride Level 102, Carbon Dioxide Level 27, Anion Gap 12, Blood Urea Nitrogen 12, Creatinine 1.0H, Estimat Glomerular Filtration Rate > 60, Glucose Level 120H, Calcium Level 9.1, Total Bilirubin 0.4, Aspartate Amino Transf (AST/SGOT) 19, Alanine Aminotransferase (ALT/SGPT) 17, Alkaline Phosphatase 36, Total Protein 7.1, Albumin 3.5, Globulin 3.6, Albumin/Globulin Ratio 0.9L Height (Feet): 5 Height (Inches): 0.25 Weight (Pounds): 135 EENT: PERRL/EOMI Neck: supple Cardiovascular: normal rate Respiratory/Chest: lungs clear Abdomen: soft Asia Pack MD Dec 25, 2016 12:04
--- NOTE | 2016-12-25 14:39 | Diagnostic Imaging Report ---
Indications: Right-sided abdominal pain, status post laparoscopic cholecystectomy, apparent intraductal filling defects on intraoperative cholangiogram requiring further evaluation Technique: Coronal and axial T2-weighted single shot fast spin echo breath hold, coronal and coronal oblique thick slab MRCP, axial T2-weighted fat saturated fast spin echo, 2-D FIESTA fat sat, dual echo spoiled gradient, and LAVA flex sequences of the abdomen performed without IV gadolinium administration. Findings: Comparison: Intraoperative cholangiogram 12/24/2016 10 mm circumscribed, polygonal, heterogeneously hypointense nodular lesion appears to focally indent the posterior lateral wall of the common hepatic duct in the expected location of the cystic duct insertion. The common hepatic duct is focally narrowed at this level. Common hepatic duct above this level, common bile duct below this level mildly distended without additional intraluminal filling defect. Gallbladder is absent. Fluid and gas bubbles are present in the gallbladder fossa and chanelle hepatis. Small mass of intraperitoneal free air and fluid are present. Liver, pancreas, spleen, adrenal glands, kidneys, remainder visualized upper abdominal anatomy unremarkable. Pleural-based irregular linear opacities at dependent portions of both lung bases. Impression: Findings described most concerning for impacted stone in cystic duct remnant focally indenting and narrowing the common hepatic duct at level of cystic duct insertion. Extrahepatic ducts on either side mildly distended evidence of additional intraluminal stone. Fluid and gas bubbles in the operative bed likely postsurgical Mild pneumoperitoneum and ascites likely postsurgical Pulmonary bibasal subsegmental atelectasis Images reviewed in person with Dr. Farmer, consulting surgeon, time of this dictation
[2016-12-25 16:00] VITALS: BP 106/51
--- NOTE | 2016-12-25 17:01 | General Progress Note ---
Assessment/Plan Assessment/Plan Assessment - acute kofi - s/p cholecystectomy Recommendations - po diet per surgery - d/c planning Subjective Allergies: Coded Allergies: No Known Allergies (Unverified , 12/22/16) Subjective Feels well s/p lap kofi some wound pain Objective Last 24 Hour Vital Signs Date Time Temp Pulse Resp B/P Pulse Ox O2 Delivery O2 Flow Rate FiO2 12/25/16 12:03 98.6 86 15 113/69 98 Room Air 12/25/16 08:48 98.1 85 16 99/55 95 Room Air 12/25/16 06:58 98.1 12/25/16 04:00 98.1 63 18 101/58 99 Room Air 12/25/16 00:00 98.2 77 18 101/61 95 Nasal Cannula 2.0 12/24/16 19:00 99.3 82 20 95/47 97 Nasal Cannula 2.0 12/24/16 18:36 98.4 Intake and Output 12/24/16 12/25/16 19:00 07:00 Intake Total 1810 ml 1875 ml Output Total 250 ml Balance 1560 ml 1875 ml Intake Oral 720 ml IV Total 1810 ml 1155 ml Output Urine Total 150 ml Estimated Blood Loss 100 ml # Voids 8 Laboratory Tests 12/25/16 04:40: White Blood Count 5.2, Red Blood Count 4.85, Hemoglobin 13.1, Hematocrit 40.3, Mean Corpuscular Volume 83, Mean Corpuscular Hemoglobin 27.1, Mean Corpuscular Hemoglobin Concent 32.6, Red Cell Distribution Width 12.5, Platelet Count 212, Mean Platelet Volume 8.4, Neutrophils (%) (Auto) 53.0, Lymphocytes (%) (Auto) 31.6, Monocytes (%) (Auto) 9.9, Eosinophils (%) (Auto) 3.9H, Basophils (%) (Auto ) 1.5, Sodium Level 141, Potassium Level 4.2, Chloride Level 102, Carbon Dioxide Level 27, Anion Gap 12, Blood Urea Nitrogen 12, Creatinine 1.0H, Estimat Glomerular Filtration Rate > 60, Glucose Level 120H, Calcium Level 9.1, Total Bilirubin 0.4, Aspartate Amino Transf (AST/SGOT) 19, Alanine Aminotransferase (ALT/SGPT) 17, Alkaline Phosphatase 36, Total Protein 7.1, Albumin 3.5, Globulin 3.6, Albumin/Globulin Ratio 0.9L Height (Feet): 5 Height (Inches): 0.25 Weight (Pounds): 135 Objective WDWN NCAT supple CTA RRR Soft wounds OK no edema REBECCA ZAPATA Dec 25, 2016 17:01
--- NOTE | 2016-12-25 17:34 | Infectious Diseases Prog Note ---
Assessment/Plan Problems: (1) Choledocholithiasis with acute cholecystitis with obstruction Assessment & Plan: S/P LAP Cholecystectomy , on Unasyn empirically, await blood culture, general surgery is following (2) UTI (urinary tract infection) Assessment & Plan: urine culture showed mixed sara, most likely colonization , continue Unasyn empirically (3) Cystic duct calculus Assessment & Plan: on MRI, need ERCP, GI is following , continue antibiotics for now (4) Abdominal pain Assessment & Plan: due to the above, continue pain management as per primary Subjective Constitutional: Denies: anorexia, chills, drenching sweats, fatigue, fever, no symptoms, other HEENT: Denies: congestion, coryza, dysphagia, hearing change, no symptoms, other, visual change Respiratory: Denies: dry cough, no symptoms, other, productive cough, shortness of breath Breasts: Denies: discharge, no symptoms, other, swelling, tenderness Cardiovascular: Denies: chest pain, dyspnea on exertion, no symptoms, other, palpitations Gastrointestinal/Abdominal: Denies: bloating, blood in stool, constipation, diarrhea, nausea, no symptoms, other, vomiting Genitourinary: Denies: dysuria, frequency, hematuria, last menstrual period, no symptoms, nocturia, other, vaginal bleed/discharge Neurologic: Denies: confusion, headache, no symptoms, numbness, other, weakness Psychiatric: Denies: anxiety, depression, no symptoms, other Skin: Denies: no symptoms, other, rash, ulcer Allergies: Coded Allergies: No Known Allergies (Unverified , 12/22/16) Objective Vital Signs Last 24 Hour Vital Signs Date Time Temp Pulse Resp B/P Pulse Ox O2 Delivery O2 Flow Rate FiO2 12/25/16 12:03 98.6 86 15 113/69 98 Room Air 12/25/16 08:48 98.1 85 16 99/55 95 Room Air 12/25/16 06:58 98.1 12/25/16 04:00 98.1 63 18 101/58 99 Room Air 12/25/16 00:00 98.2 77 18 101/61 95 Nasal Cannula 2.0 12/24/16 19:00 99.3 82 20 95/47 97 Nasal Cannula 2.0 12/24/16 18:36 98.4 Height (Feet): 5 Height (Inches): 0.25 Weight (Pounds): 135 General Appearance: WD/WN, no acute distress HEENT: normocephalic, atraumatic, anicteric, mucous membranes moist Respiratory/Chest: chest wall non-tender, lungs clear, normal breath sounds, no respiratory distress, no accessory muscle use Cardiovascular: normal peripheral pulses, normal rate, regular rhythm, no gallop/murmur, no JVD Abdomen: normal bowel sounds, soft, non tender, no organomegaly, non distended , no mass Extremities: no cyanosis, no clubbing Skin: no rash Microbiology Date/Time Source Procedure Growth Status 12/23/16 05:20 Blood Blood Culture - Preliminary NO GROWTH AFTER 24 HOURS Resulted 12/23/16 05:10 Blood Blood Culture - Preliminary NO GROWTH AFTER 24 HOURS Resulted Laboratory Tests Test 12/25/16 04:40 White Blood Count 5.2 K/UL (4.8-10.8) Red Blood Count 4.85 M/UL (4.20-5.40) Hemoglobin 13.1 G/DL (12.0-16.0) Hematocrit 40.3 % (37.0-47.0) Mean Corpuscular Volume 83 FL (80-99) Mean Corpuscular Hemoglobin 27.1 PG (27.0-31.0) Mean Corpuscular Hemoglobin Concent 32.6 G/DL (32.0-36.0) Red Cell Distribution Width 12.5 % (11.6-14.8) Platelet Count 212 K/UL (150-450) Mean Platelet Volume 8.4 FL (6.5-10.1) Neutrophils (%) (Auto) 53.0 % (45.0-75.0) Lymphocytes (%) (Auto) 31.6 % (20.0-45.0) Monocytes (%) (Auto) 9.9 % (1.0-10.0) Eosinophils (%) (Auto) 3.9 % (0.0-3.0) H Basophils (%) (Auto) 1.5 % (0.0-2.0) Sodium Level 141 mEQ/L (135-145) Potassium Level 4.2 mEQ/L (3.4-4.9) Chloride Level 102 mEQ/L (98-107) Carbon Dioxide Level 27 mEQ/L (20-30) Anion Gap 12 (5-15) Blood Urea Nitrogen 12 mg/dL (7-23) Creatinine 1.0 mg/dL (0.5-0.9) H Estimat Glomerular Filtration Rate > 60 mL/min (>60) Glucose Level 120 mg/dL (74-106) H Calcium Level 9.1 mg/dL (8.6-10.2) Total Bilirubin 0.4 mg/dL (0.0-1.2) Aspartate Amino Transf (AST/SGOT) 19 U/L (5-40) Alanine Aminotransferase (ALT/SGPT) 17 U/L (3-33) Alkaline Phosphatase 36 U/L (35-104) Total Protein 7.1 g/dL (6.6-8.7) Albumin 3.5 g/dL (3.5-5.2) Globulin 3.6 g/dL Albumin/Globulin Ratio 0.9 (1.0-2.7) L Current Medications Medications (Trade) Dose Ordered Sig/Steven Route PRN Reason Start Time Stop Time Status Last Admin Dose Admin Acetaminophen (Tylenol) 650 mg Q4H PRN ORAL Temp > 100.5 12/24/16 14:10 01/21/17 22:29 Acetaminophen/ Hydrocodone Bitart (Magnolia 10/325) 1 ea Q4H PRN ORAL moderate breakthrough pain 12/25/16 09:15 01/01/17 09:14 Ampicillin Sodium/ Sulbactam Sodium/ Sodium Chloride (Unasyn/Sodium Chloride) 55 ml @ 110 mls/hr Q6HR IVPB 12/23/16 12:00 12/30/16 11:59 12/25/16 13:42 Docusate Sodium (Colace) 100 mg TWICE A DAY ORAL 12/24/16 18:00 01/23/17 17:59 12/25/16 09:46 Hydromorphone HCl (Dilaudid) 0.5 mg Q3H PRN IVP Pain Score 1-3 12/24/16 11:30 12/31/16 11:29 12/24/16 18:06 Hydromorphone HCl (Dilaudid) 1 mg Q3H PRN IVP pain score 4-6 12/24/16 12:00 12/31/16 11:59 12/25/16 06:28 Hydromorphone HCl (Dilaudid) 2 mg Q3H PRN IVP pain score 7-10 12/24/16 11:30 12/31/16 11:29 Magnesium Hydroxide (Mom) 30 ml BIDPRN PRN ORAL Constipation 12/24/16 11:30 01/23/17 11:29 Metoclopramide HCl (Reglan) 10 mg Q6H PRN IVP Nausea & Vomiting 12/24/16 11:30 01/23/17 11:29 Ondansetron HCl (Zofran) 4 mg Q6H PRN IVP Nausea & Vomiting 12/24/16 11:30 01/23/17 11:29 Bobby Story M.D. Dec 25, 2016 17:34
[2016-12-25 20:00] VITALS: BP 110/55
[2016-12-25] MEDS ORDERED: 1/2 NS 1000ml IV ONE (22:56)
[2016-12-26] VITALS: BP 97/55
[2016-12-26] MEDS: HYDROmorphone 1mg/ml Carpuject IVP PRN ×2 (01:21→05:49)
[2016-12-26 04:00] VITALS: BP 102/65
[2016-12-26] MEDS: Ampicillin/Sulbactam Sod 3 GM in NS 55 ML IVPB SCH ×4 (05:42→18:28)
[2016-12-26] MEDS: Docusate 100mg cap ORAL SCH ×2 (08:15→18:00)
[2016-12-26 08:20] LABS: ALANINE AMINOTRANSFERASE 18 U/L (3-33); ALBUMIN/GLOBULIN RATIO 1.2 (1.0-2.7); ANION GAP 12 (5-15); ASPARTATE AMINO TRANSFERASE 24 U/L (5-40); CALCIUM 8.8 mg/dL (8.6-10.2); CARBON DIOXIDE 28 mEQ/L (20-30); CHLORIDE 101 mEQ/L (98-107); CREATININE 0.5 mg/dL (0.5-0.9); GLOMERULAR FILTRATION RATE > 60 mL/min (>60); HEMOLYSIS 5; POTASSIUM 3.8 mEQ/L (3.4-4.9); SODIUM 141 mEQ/L (135-145); TOTAL PROTEIN 6.4 g/dL (6.6-8.7)
[2016-12-26 08:33] VITALS: BP 92/56
--- NOTE | 2016-12-26 10:06 | General Progress Note ---
Assessment/Plan Problem List: (1) Cystic duct calculus ICD Codes: K80.20 - Calculus of gallbladder without cholecystitis without obstruction SNOMED: 12535970 (2) cholecystitis (3) Abdominal pain ICD Codes: R10.9 - Unspecified abdominal pain SNOMED: 59971516 (4) Choledocholithiasis with acute cholecystitis with obstruction ICD Codes: K80.41 - Calculus of bile duct with cholecystitis, unspecified, with obstruction SNOMED: 81996197 Assessment/Plan plan ERCP on wednesday Subjective ROS Limited/Unobtainable: Yes Allergies: Coded Allergies: No Known Allergies (Unverified , 12/22/16) Subjective no event Objective Last 24 Hour Vital Signs Date Time Temp Pulse Resp B/P Pulse Ox O2 Delivery O2 Flow Rate FiO2 12/26/16 08:33 97.9 86 15 92/56 98 Room Air 12/26/16 04:00 98.1 81 18 102/65 99 Room Air 12/26/16 00:00 98.1 90 18 97/55 97 Room Air 12/25/16 21:55 97.9 12/25/16 20:00 98.0 69 19 110/55 100 Room Air 12/25/16 16:00 97.9 78 18 106/51 94 Room Air 12/25/16 12:03 98.6 86 15 113/69 98 Room Air Intake and Output 12/25/16 12/26/16 19:00 07:00 Intake Total 400 ml 360 ml Balance 400 ml 360 ml Intake Oral 400 ml 360 ml # Voids 2 4 # Bowel Movements 1 Laboratory Tests 12/26/16 05:40: Sodium Level 141, Potassium Level 3.8, Chloride Level 101, Carbon Dioxide Level 28, Anion Gap 12, Blood Urea Nitrogen 4L, Creatinine 0.5, Estimat Glomerular Filtration Rate > 60, Glucose Level 88, Calcium Level 8.8, Total Bilirubin 0.5, Aspartate Amino Transf (AST/SGOT) 24, Alanine Aminotransferase (ALT/SGPT) 18, Alkaline Phosphatase 51, Total Protein 6.4L, Albumin 3.6, Globulin 2.8, Albumin/ Globulin Ratio 1.2 Height (Feet): 5 Height (Inches): 0.25 Weight (Pounds): 135 General Appearance: alert EENT: normal ENT inspection Neck: supple Cardiovascular: normal rate Respiratory/Chest: lungs clear Abdomen: soft Extremities: non-tender BETSEY PARKS Dec 26, 2016 10:06
--- NOTE | 2016-12-26 10:32 | General Surgery Progress Note ---
General Surgery-Progress Note Subjective Symptoms: improved Objective Last 24 Hour Vital Signs Date Time Temp Pulse Resp B/P Pulse Ox O2 Delivery O2 Flow Rate FiO2 12/26/16 08:33 97.9 86 15 92/56 98 Room Air 12/26/16 04:00 98.1 81 18 102/65 99 Room Air 12/26/16 00:00 98.1 90 18 97/55 97 Room Air 12/25/16 21:55 97.9 12/25/16 20:00 98.0 69 19 110/55 100 Room Air 12/25/16 16:00 97.9 78 18 106/51 94 Room Air 12/25/16 12:03 98.6 86 15 113/69 98 Room Air I&O Intake and Output 12/25/16 12/26/16 19:00 07:00 Intake Total 400 ml 360 ml Balance 400 ml 360 ml Intake Oral 400 ml 360 ml # Voids 2 4 # Bowel Movements 1 Dressing: dry Wound: clean Drains: none Cardiovascular: RSR Respiratory: clear Abdomen: soft Laboratory Tests Test 12/26/16 05:40 Sodium Level 141 mEQ/L (135-145) Potassium Level 3.8 mEQ/L (3.4-4.9) Chloride Level 101 mEQ/L (98-107) Carbon Dioxide Level 28 mEQ/L (20-30) Anion Gap 12 (5-15) Blood Urea Nitrogen 4 mg/dL (7-23) L Creatinine 0.5 mg/dL (0.5-0.9) Estimat Glomerular Filtration Rate > 60 mL/min (>60) Glucose Level 88 mg/dL (74-106) Calcium Level 8.8 mg/dL (8.6-10.2) Total Bilirubin 0.5 mg/dL (0.0-1.2) Aspartate Amino Transf (AST/SGOT) 24 U/L (5-40) Alanine Aminotransferase (ALT/SGPT) 18 U/L (3-33) Alkaline Phosphatase 51 U/L (35-104) Total Protein 6.4 g/dL (6.6-8.7) L Albumin 3.6 g/dL (3.5-5.2) Globulin 2.8 g/dL Albumin/Globulin Ratio 1.2 (1.0-2.7) Imaging MRCP yesterday showed a stone on the cystic duct junction with the common duct which was causing mild indentation of the common duct Assessment Post-op Diagnosis Acute cholecystitis with residual stone in cystic duct Additional Comments After discussion with the radiologist and deicer kit assembler we have agreed that the most prudent course is an ERCP Plan Additional Comments We will arrange for an ERCP on 11-30-16 Jaspal Burroughs MD Dec 26, 2016 10:32
--- NOTE | 2016-12-26 11:37 | General Progress Note ---
Assessment/Plan Problem List: (1) Abdominal pain ICD Codes: R10.9 - Unspecified abdominal pain SNOMED: 08015034 (2) cholecystitis Status: progressing Assessment/Plan acute cholycystitis surgery by dr jain group afebrile dc per surgeon Subjective ROS Limited/Unobtainable: Yes Constitutional: Reports: no symptoms Allergies: Coded Allergies: No Known Allergies (Unverified , 12/22/16) Objective Last 24 Hour Vital Signs Date Time Temp Pulse Resp B/P Pulse Ox O2 Delivery O2 Flow Rate FiO2 12/26/16 08:33 97.9 86 15 92/56 98 Room Air 12/26/16 04:00 98.1 81 18 102/65 99 Room Air 12/26/16 00:00 98.1 90 18 97/55 97 Room Air 12/25/16 21:55 97.9 12/25/16 20:00 98.0 69 19 110/55 100 Room Air 12/25/16 16:00 97.9 78 18 106/51 94 Room Air 12/25/16 12:03 98.6 86 15 113/69 98 Room Air Intake and Output 12/25/16 12/26/16 19:00 07:00 Intake Total 400 ml 360 ml Balance 400 ml 360 ml Intake Oral 400 ml 360 ml # Voids 2 4 # Bowel Movements 1 Laboratory Tests 12/26/16 05:40: Sodium Level 141, Potassium Level 3.8, Chloride Level 101, Carbon Dioxide Level 28, Anion Gap 12, Blood Urea Nitrogen 4L, Creatinine 0.5, Estimat Glomerular Filtration Rate > 60, Glucose Level 88, Calcium Level 8.8, Total Bilirubin 0.5, Aspartate Amino Transf (AST/SGOT) 24, Alanine Aminotransferase (ALT/SGPT) 18, Alkaline Phosphatase 51, Total Protein 6.4L, Albumin 3.6, Globulin 2.8, Albumin/ Globulin Ratio 1.2 Height (Feet): 5 Height (Inches): 0.25 Weight (Pounds): 135 EENT: PERRL/EOMI Neck: supple Cardiovascular: normal rate Respiratory/Chest: lungs clear Abdomen: soft Asia Pack MD Dec 26, 2016 11:37
[2016-12-26 11:58] VITALS: BP 93/59
[2016-12-26 16:45] VITALS: BP 91/58
[2016-12-26] MEDS ORDERED: Tubing IV Secondary IV ONE (19:26)
[2016-12-28 10:24] VITALS: BP 108/56
--- NOTE | 2016-12-28 10:24 | 48 Hour Post Anesthesia Eval ---
Post Anesthesia Evaluation Procedure: Laparoscopic cholecystectomy with cholangiogram Date of Evaluation: Dec 25, 2016 Time of Evaluation: 10:20 Blood Pressure Systolic: 108 0: 56 Pulse Rate: 72 Respiratory Rate: 20 Temperature (Fahrenheit): 97.6 O2 Sat by Pulse Oximetry: 99 Airway: patent Nausea: No Vomiting: No Pain Intensity: 2 Hydration Status: adequate Cardiopulmonary Status: stable Mental Status/LOC: patient returned to baseline Follow-up Care/Observations: n/a Post-Anesthesia Complications: none Follow-up care needed: N/A HARLEEN ELIZONDO M.D. Dec 28, 2016 10:24
--- NOTE | 2016-12-28 14:37 | Discharge Summary ---
Discharge Summary Hospital Course Date of Admission Dec 22, 2016 at 21:00 Date of Discharge Dec 26, 2016 at 19:27 Admitting Diagnosis CHOLECYTITIS HPI Melissa Mario is a 26 year old female who was admitted on Dec 22, 2016 at 21:00 for Cholecytitis Hospital Course dc summary # [id number] Discharge Condition Upon Discharge: stable Discharge Disposition Patient signed AMA Discharge Diagnoses: Discharge Instructions Discharge Instructions Special Instructions I have been assigned to complete a D/C Summary on this account. I was not involved in the patient management Nikole Guy NP ([place]) Dec 28, 2016 14:37
--- NOTE | 2016-12-29 06:58 | Discharge Summary 2 SIG ---
DATE OF ADMISSION: 12/22/2016 7 DATE OF SIGNING AGAINST MEDICAL ADVICE: 12/26/2016 REASON FOR ADMISSION: 26-year-old female came to emergency room complaining of right upper quadrant and right flank pain for one day. Reported intermittent pain and nausea for four days. She reported history of kidney stones and reported right flank pain as well as right upper quadrant pain, rating it as a 9/10 on a scale of 1 to 10. She denied hematuria. Reported mild dysuria. Denied fever and chills. Denied . Denied any ill contacts. Denied chest pain, palpitations, loss of consciousness, dizziness, change in vision, sensation, paresthesia, or sudden severe headache. No shortness of breath, no dyspnea. The patient had no leukocytosis. A urinalysis was positive for urinary tract infection. CT of the abdomen and pelvis revealed acute cholecystitis with distention of the gallbladder and multiple stones in there, status post appendectomy. Subsequently, abdominal ultrasound was done, which revealed acute cholecystitis. General surgeon consult was requested from the emergency department. Patient was admitted for further management. ADMITTING DIAGNOSIS choledocholithiasis acute cholecystitis with obstruction UTI Abdominal pain HOSPITAL COURSE: General surgeon ordered HIDA scan, which revealed cystic duct obstruction. The patient was NPO, on the IV fluids and empiric antibiotic. ID followed the patient. The patient subsequently had undergone the next day, on 12/24/2016, laparoscopic cholecystectomy with cholangiogram. Abdominal MRI subsequently was done due to the right-sided abdominal pain and apparent intraductal filling defect during intraoperative cholangiogram, requiring further evaluation. Abdominal MRI revealed impacted stone in the cystic duct remnant focally, indenting and narrowing the common hepatic duct at the level of the cystic duct insertion. Surgeon discussed the findings with the gastroenterologic, who had seen and evaluated the patient and scheduled ERCP for removal of the cystic duct stone on 12/28/2016. Meantime, pain management was provided, antiemetic provided on as needed basis. The patient was kept NPO, intravenous fluids provided, empiric antibiotic administered, The patient was afebrile. No leukocytosis. On 12/26/2016, the patient decided to sign against medical advice. She was worried about her children. The patient was explained risks and consequences of signing against medical advice. However, the patient insisted, did not want to wait for the doctor to call back. The patient signed the form and left. Of note, urine culture revealed mixed gram positive organism. FINAL DIAGNOSIS: choledocholithiasis acute cholecystitis with obstructions s/p laparoscopic cholecystectomy with cholangiogram cystic duct calculus abdominal pain likely UTI [employer] M.D. I have been assigned to dictate discharge summary on this account and I was not involved in the patient's management. Nikole Guy (Vanchtein) NFatumaPFatuma DR: ANGEL JOB#: [id number] CC: REA
== END 2016-12-26 19:27 | disposition left against medical advice (07) | DRG 263 ==
LOC: EMR 16:30 → 4E 21:00 → EDBEDREQ 21:07
PROC: BF101ZZ Fluoroscopy of Bile Ducts using Low Osmolar Contrast (ICD-10-PCS; 2016-12-24)
PROC: 0FT44ZZ Resection of Gallbladder, Percutaneous Endoscopic Approach (ICD-10-PCS; principal; 2016-12-24 07:30)
DX: K80.62 Calculus of gallbladder and bile duct with acute cholecystitis without obstruction (principal); I95.9 Hypotension, unspecified; N39.0 Urinary tract infection, site not specified; R00.0 Tachycardia, unspecified
CPT/HCPCS: 36415; 74176; 74181; 74300; 76001; 76700; 78266; 80053; 81003; 81025; 83690; 85025; 85610; 85730; 87040; 87086; 94003; 94150; J2250; J2405; J2710; Q2036